=== PATIENT | female | born 1965 | race African-American/Black ===

== ENCOUNTER 2016-12-14 11:35 | Emergency (ER) | payer MEDICARE ==
[2016-12-14] MEDS ORDERED: ASPIRIN 81 MG TABLET, CHEWABLE PO ONE (11:49)
--- NOTE | 2016-12-14 11:52 | ER Document Report ---
ED Medical Screen (RME) - General Stated Complaint: SHORTNESS OF BREATH Notes: Patient states she has been feeling short of breath for about a month. Does have a history of congestive heart failure. Denies peripheral swelling. Patient states she has had a cough the last couple of days. Denies chest pain, but states it feels uneasy. Denies fever. Patient states her heart rate has been staying above 100. I have greeted and performed a rapid initial assessment of this patient. A comprehensive ED assessment and evaluation of the patient, analysis of test results and completion of the medical decision making process will be conducted by additional ED providers. TRAVEL OUTSIDE OF THE [place] IN LAST 30 DAYS: No - Related Data Allergies/Adverse Reactions: No Known Allergies Allergy (Verified 12/14/16 11:50) Past Medical History - Past Medical History Cardiac Medical History: Reports: Hx Congestive Heart Failure, Hx Hypertension, Hx Pulmonary Embolism Pulmonary Medical History: Denies: Hx Tuberculosis Psychiatric Medical History: Reports: Hx Depression Past Surgical History: Reports: Hx Cardiac Surgery - pacer/defib placement, Hx Hysterectomy, Hx Internal Defibrillator, Hx Orthopedic Surgery - total right knee replacement, Hx Pacemaker, Hx Tubal Ligation. Denies: Hx Appendectomy, Hx Bowel Surgery, Hx Section, Hx Cholecystectomy, Hx Coronary Artery Bypass Graft, Hx Gastric Bypass Surgery, Hx Herniorrhaphy, Hx Mastectomy, Hx Tonsillectomy - Immunizations Hx Diphtheria, Pertussis, Tetanus Vaccination: Yes Physical Exam - Vital signs Vitals: Temp Pulse Resp BP Pulse Ox 98.3 F 100 18 149/103 H 97 12/14/16 11:46 12/14/16 11:46 12/14/16 11:46 12/14/16 11:46 12/14/16 11:46 - Respiratory Notes: Lungs clear to auscultation, patient in no respiratory distress. Course - Vital Signs Vital signs: Temp Pulse Resp BP Pulse Ox 98.3 F 100 18 149/103 H 97 12/14/16 11:46 12/14/16 11:46 12/14/16 11:46 12/14/16 11:46 12/14/16 11:46
[2016-12-14 12:30] LABS: APPEARANCE,URINE CLEAR; BILIRUBIN,URINE NEGATIVE (NEGATIVE); GLUCOSE, URINE NEGATIVE (NEGATIVE); KETONES,URINE NEGATIVE (NEGATIVE); LEUKOCYTE ESTERASE,URINE NEGATIVE (NEGATIVE); NITRITE,URINE NEGATIVE (NEGATIVE); PROTEIN,URINE NEGATIVE (NEGATIVE); URINE SPECIFIC GRAVITY 1.016; UROBILINOGEN,URINE NEGATIVE mg/dL (<2.0)
[2016-12-14 12:32] LABS: PROTHROMBIN TIME 14.8 SEC (11.4-15.4)
[2016-12-14 12:36] LABS: ABSOLUTE EOSINOPHILS # (AUTO) 0.1 10^3/uL (0.0-0.6); ABSOLUTE LYMPHOCYTES (AUTO) 2.3 10^3/uL (0.5-4.7); ABSOLUTE MONOCYTES (AUTO) 0.6 10^3/uL (0.1-1.4); ABSOLUTE NEUT (AUTO) 4.1 10^3/uL (1.7-8.2); BASOPHILS % (AUTO) 0.4 % (0-2); EOSINOPHILS % (AUTO) 1.2 % (0-6); HEMATOCRIT 37.5 % (36.0-47.0); HEMOGLOBIN 12.7 g/dL (12.0-15.5); HGB HCT DIFFERENCE 0.6; LYMPHOCYTES % (AUTO) 32.3 % (13-45); MEAN CORPUSCULAR HEMOGLOBIN 28.4 pg (27.0-33.4); MEAN CORPUSCULAR HGB CONC 33.9 g/dL (32.0-36.0); MEAN CORPUSCULAR VOLUME 84 fl (80-97); MONOCYTES % (AUTO) 8.1 % (3-13); RED BLOOD COUNT 4.48 10^6/uL (3.72-5.28); RED CELL DISTRIBUTION WIDTH 14.2 % (11.5-14.0)
[2016-12-14 12:54] LABS: ALANINE AMINOTRANSFERASE 35 U/L (9-52); ALBUMIN 4.2 g/dL (3.5-5.0); ALKALINE PHOSPHATASE 58 U/L (38-126); ANION GAP 15 (5-19); ASPARTATE AMINO TRANSFERASE 26 U/L (14-36); BILIRUBIN,DIRECT 0.3 mg/dL (0.0-0.4); BILIRUBIN,TOTAL 0.7 mg/dL (0.2-1.3); BLOOD UREA NITROGEN 9 mg/dL (7-20); CALCIUM 9.8 mg/dL (8.4-10.2); CARBON DIOXIDE 22 mmol/L (22-30); CHLORIDE 106 mmol/L (98-107); CREATINE KINASE 172 U/L (30-135); CREATININE RESULT 0.77 mg/dL (0.52-1.25); GLUCOSE 101 mg/dL (75-110); POTASSIUM 4.2 mmol/L (3.6-5.0); SODIUM 143.1 mmol/L (137-145)
[2016-12-14 13:04] LABS: CREATINE KINASE MB 1.67 ng/mL (<4.55)
[2016-12-14 13:05] LABS: TROPONIN I < 0.012 ng/mL
--- NOTE | 2016-12-14 13:09 | EKG REPORT ---
SEVERITY:- ABNORMAL ECG - SINUS RHYTHM MAXIMUS, CONSIDER BIATRIAL ABNORMALITIES NONSPECIFIC INTRAVENTRICULAR CONDUCTION DELAY LEFT VENTRICULAR HYPERTROPHY : Confirmed by: Maynor Villareal MD 14-Dec-2016 13:08:55
[2016-12-14] MEDS ORDERED: FUROSEMIDE INJ/PF 40 MG/4 ML SDV IV ONE (15:16)
--- NOTE | 2016-12-14 15:40 | ER Document Report ---
ED Respiratory Problem - General Chief Complaint: Shortness Of Breath Stated Complaint: SHORTNESS OF BREATH Information source: Patient Notes: 51-year-old female with past medical history as recorded including CHF with a defibrillator who presents today with around 1 week of some shortness of breath. She denies to me any chest pain. She denies any calf pain or leg swelling. She denies any fevers or coughing. Patient states she did run out of her Lasix 13-4 days ago. She states she takes around 40 mg twice a day. Patient's primary care physician locally is millicent Winkler. Judicial Clerk is at [facility]. TRAVEL OUTSIDE OF THE [place] IN LAST 30 DAYS: No - HPI Patient complains to provider of: Short of breath Onset: Other - See above Duration: Better Quality of pain: No pain Severity: Mild Pain Level: Denies Context: Other - See above Short of Breath: Mild Sputum amount: None Associated symptoms: Other - See above Similar symptoms previously: Yes Recently seen / treated by doctor: Yes - Related Data Allergies/Adverse Reactions: No Known Allergies Allergy (Verified 12/14/16 11:50) Past Medical History - General Information source: Patient - Social History Smoking Status: Never Smoker Cigarette use (# per day): No Chew tobacco use (# tins/day): No Smoking Education Provided: No Frequency of alcohol use: Rare Drug Abuse: None Family History: Reviewed & Not Pertinent Patient has suicidal ideation: No Patient has homicidal ideation: No - Past Medical History Cardiac Medical History: Reports: Hx Congestive Heart Failure, Hx Hypertension, Hx Pulmonary Embolism Pulmonary Medical History: Denies: Hx Tuberculosis Renal/ Medical History: Denies: Hx Peritoneal Dialysis Psychiatric Medical History: Reports: Hx Depression Past Surgical History: Reports: Hx Cardiac Surgery - pacer/defib placement, Hx Hysterectomy, Hx Internal Defibrillator, Hx Orthopedic Surgery - total right knee replacement, Hx Pacemaker, Hx Tubal Ligation. Denies: Hx Appendectomy, Hx Bowel Surgery, Hx Section, Hx Cholecystectomy, Hx Coronary Artery Bypass Graft, Hx Gastric Bypass Surgery, Hx Herniorrhaphy, Hx Mastectomy, Hx Tonsillectomy - Immunizations Hx Diphtheria, Pertussis, Tetanus Vaccination: Yes Hx Pneumococcal Vaccination: 09/26/10 Review of Systems - Review of Systems Constitutional: denies: Fever EENT: denies: Eye discharge, Nose discharge Cardiovascular: denies: Chest pain, Palpitations Respiratory: denies: Cough, Short of breath Gastrointestinal: denies: Vomiting Genitourinary: denies: Dysuria Musculoskeletal: denies: Leg swelling Skin: Other - no hives. denies: Rash Neurological/Psychological: Other - no slurred speech -: Yes All other systems reviewed and negative Physical Exam - Vital signs Vitals: Temp Pulse Resp BP Pulse Ox 98.3 F 100 18 149/103 H 97 12/14/16 11:46 12/14/16 11:46 12/14/16 11:46 12/14/16 11:46 12/14/16 11:46 Notes: Reviewed vital signs and nursing note as charted by RN. CONSTITUTIONAL: Alert and oriented and responds appropriately to questions. Well -appearing; well-nourished HEAD: Normocephalic; atraumatic CARD: Regular rate and rhythm; no murmurs, no clicks, no rubs, no gallops; symmetric distal pulses RESP: Normal chest excursion without splinting or tachypnea; breath sounds clear and equal bilaterally; no wheezes, no rhonchi, no rales ABD/GI: Normal bowel sounds; non-distended; soft, non-tender, no rebound, no guarding; no palpable organomegaly or masses BACK: The back appears normal and is non-tender to palpation, there is no CVA tenderness EXT: Normal ROM in all joints; non-tender to palpation; no cyanosis, no effusions, no edema SKIN: Normal color for age and race; warm; dry; good turgor; capillary refill < 2 seconds; no acute lesions noted NEURO: Moves all extremities equally; Motor and sensory function intact PSYCH: The patient's mood and manner are appropriate. Grooming and personal hygiene are appropriate. Course - Re-evaluation Re-evalutation: Given history and physical examination we will order an x-ray of the chest, BNP , cardiac enzymes, and EKG. 12/14/16 15:37 Cardiac enzymes as recorded. BMP as recorded. X-ray of the chest shows some mild cardiomegaly without any obvious signs of failure. Patient's room air oxygen saturation is 99%. Heart rate 70. Blood pressure 140/92 currently. EKG shows a heart rate of 98, normal sinus rhythm, left axis deviation, LVH with no obvious ST elevation or depression. Old EKG on 12/11/2015 shows no obvious appreciable change. Given the history, physical, normal troponin, x-ray of the chest as recorded, unchanged EKG, no chest pain, BNP as recorded, noncompliant with medications for the last 4 days, with a history of congestive heart failure, with stable vital signs, I will provide a one-time dose of Lasix 40 mg and refill the patient's Lasix prescription. I have tried to call the patient's primary care physician Dr. Winkler, and did speak with his office staff, but they state that he is only present in the office on Tuesday, Tuesday, and Tuesday. They state that the patient should be able to be seen on Tuesday. I have relayed this to the patient. Patient will be discharged home after the course of Lasix with strict return precautions and follow-up with both a primary care physician and it program manager. She understands these instructions and is in agreement with this plan. - Vital Signs Vital signs: Temp Pulse Resp BP Pulse Ox 98.3 F 100 18 149/103 H 97 12/14/16 11:46 12/14/16 11:46 12/14/16 11:46 12/14/16 11:46 12/14/16 11:46 - Laboratory Result Diagrams: 12/14/16 11:55 12/14/16 11:55 Laboratory results interpreted by me: 12/14/16 12/14/16 11:55 11:55 RDW 14.2 H Creatine Kinase 172 H Discharge - Discharge Clinical Impression: Shortness of breath Condition: Good Disposition: HOME, SELF-CARE Additional Instructions: Come back immediately with any worsening shortness of breath, chest pain, calf pain, leg swelling, fevers, coughing, or any other acute problems. Please make sure that you follow-up with your primary care physician on Tuesday and please contact her it program manager tomorrow. Please start taking again your Lasix medications as we have discussed. Prescriptions: Furosemide [Lasix] 40 mg PO BID #60 tablet
[2016-12-14 16:04] VITALS: BP 147/106
== END 2016-12-14 16:07 | disposition home or self-care (01) ==
LOC: ER 11:35
DX: R06.02 Shortness of breath (principal); I50.9 Heart failure, unspecified; I11.0 Hypertensive heart disease with heart failure; Z96.651 Presence of right artificial knee joint; Z95.810 Presence of automatic (implantable) cardiac defibrillator; Z86.711 Personal history of pulmonary embolism; Z90.710 Acquired absence of both cervix and uterus
CPT/HCPCS: 93005; 99285; 96374; 36415; 82553; 82550; 85025; 85610; 80053; 81001; 84484; 83880; 71010; 93010; A9270; J1940

== ENCOUNTER 2017-02-04 15:35 | Emergency (ER) | payer MEDICARE, MEDICAID ==
--- NOTE | 2017-02-04 16:05 | ER Document Report ---
ED Medical Screen (RME) - General Chief Complaint: Shortness Of Breath Stated Complaint: SHORTNESS OF BREATH Time Seen by Provider: 02/04/17 15:53 Notes: The patient is a 51-year-old female, past medical history CHF (inital EF 10%, now 35%), tachydysrhythmias, history of PEs (not on Xarelto anymore due to insurance reasons), presents with increasing shortness of breath, orthopnea and dyspnea on exertion. She is also having intermittent mild left-sided chest pain. She thinks that she is having worsening symptoms of her CHF. In addition , over the past several weeks she is feeling like food is getting stuck when she swallows. She has an appointment with her primary care physician in 3 days. She denies leg swelling, fevers, nausea, vomiting, back pain, leg swelling, edema or headache. No respiratory distress. Lungs CTAB. Normal heart rate. No peripheral edema. I have greeted and performed a rapid initial assessment of this patient. A comprehensive ED assessment and evaluation of the patient, analysis of test results and completion of the medical decision making process will be conducted by additional ED providers. TRAVEL OUTSIDE OF THE [place] IN LAST 30 DAYS: No - Related Data Allergies/Adverse Reactions: No Known Allergies Allergy (Verified 12/14/16 11:50) Past Medical History - Past Medical History Cardiac Medical History: Reports: Hx Congestive Heart Failure, Hx Hypertension, Hx Pulmonary Embolism Pulmonary Medical History: Denies: Hx Tuberculosis Renal/ Medical History: Denies: Hx Peritoneal Dialysis Psychiatric Medical History: Reports: Hx Depression Past Surgical History: Reports: Hx Cardiac Surgery - pacer/defib placement, Hx Hysterectomy, Hx Internal Defibrillator, Hx Orthopedic Surgery - total right knee replacement, Hx Pacemaker, Hx Tubal Ligation. Denies: Hx Appendectomy, Hx Bowel Surgery, Hx Section, Hx Cholecystectomy, Hx Coronary Artery Bypass Graft, Hx Gastric Bypass Surgery, Hx Herniorrhaphy, Hx Mastectomy, Hx Tonsillectomy - Immunizations Hx Diphtheria, Pertussis, Tetanus Vaccination: Yes Physical Exam - Vital signs Vitals: Pulse Resp BP Pulse Ox 81 18 127/109 H 98 02/04/17 15:45 02/04/17 15:45 02/04/17 15:45 02/04/17 15:45 Course - Vital Signs Vital signs: Temp Pulse Resp BP Pulse Ox 97.9 F 81 18 127/109 H 98 02/04/17 15:49 02/04/17 15:45 02/04/17 15:45 02/04/17 15:45 02/04/17 15:45
[2017-02-04 17:00] LABS: ABSOLUTE BASOPHILS # (AUTO) 0.1 10^3/uL (0.0-0.2); ABSOLUTE EOSINOPHILS # (AUTO) 0.1 10^3/uL (0.0-0.6); ABSOLUTE LYMPHOCYTES (AUTO) 2.5 10^3/uL (0.5-4.7); ABSOLUTE MONOCYTES (AUTO) 0.4 10^3/uL (0.1-1.4); ABSOLUTE NEUT (AUTO) 3.2 10^3/uL (1.7-8.2); BASOPHILS % (AUTO) 0.9 % (0-2); EOSINOPHILS % (AUTO) 2.4 % (0-6); HEMATOCRIT 36.3 % (36.0-47.0); HEMOGLOBIN 12.1 g/dL (12.0-15.5); LYMPHOCYTES % (AUTO) 39.2 % (13-45); MEAN CORPUSCULAR HGB CONC 33.3 g/dL (32.0-36.0); MEAN CORPUSCULAR VOLUME 84 fl (80-97); RED BLOOD COUNT 4.31 10^6/uL (3.72-5.28); RED CELL DISTRIBUTION WIDTH 15.4 % (11.5-14.0); SEGMENTED NEUTROPHILS % (AUTO) 50.5 % (42-78); WHITE BLOOD COUNT 6.3 10^3/uL (4.0-10.5)
[2017-02-04 17:19] LABS: ANION GAP 11 (5-19); BLOOD UREA NITROGEN 16 mg/dL (7-20); CALCIUM 9.7 mg/dL (8.4-10.2); CARBON DIOXIDE 24 mmol/L (22-30); CHLORIDE 107 mmol/L (98-107); CREATINE KINASE 209 U/L (30-135); CREATININE RESULT 1.02 mg/dL (0.52-1.25); GLUCOSE 98 mg/dL (75-110); POTASSIUM 4.4 mmol/L (3.6-5.0); SODIUM 142.2 mmol/L (137-145)
[2017-02-04] MEDS ORDERED: METOCLOPRAMIDE HCL ORAL SOLN 10 MG/10 ML UDCUP PO ONE (17:43)
[2017-02-04] MEDS ORDERED: LIDOCAINE 2% VISCOUS SOLN 20 ML UDCUP PO ONE (17:43)
[2017-02-04] MEDS ORDERED: MAG HYDROX/AL HYDROX/SIMETH SUSP 30 ML UDCUP PO ONE (17:43)
[2017-02-04] MEDS ORDERED: FAMOTIDINE INJ/PF 20 MG/2 ML SDV IV ONE (18:22)
--- NOTE | 2017-02-04 22:07 | ER Document Report ---
ED General - General Chief Complaint: Shortness Of Breath Stated Complaint: SHORTNESS OF BREATH Time Seen by Provider: 02/04/17 15:53 Mode of Arrival: Ambulatory Information source: Patient Notes: This is a 51-year-old female with a history of a cardiomyopathy (last ejection fraction 30% status post defibrillator placement), who presents to the emergency room with shortness of breath and a choking sensation when she is eating food. Patient states she's had these symptoms for the past couple of months. She did have an appointment at [facility] on January 30 and missed the appointment , but does have an appointment this Tuesday (in 3 days). Patient denies any chest pain. Patient denies any weight gain. Patient states it seems to be affected mostly by swallowing food. She is tight able to tolerate fluids and her medicines. Medications: Lisinopril 20 Aspirin 81 Carvedilol 25 Lasix 88 Spironolactone 25 TRAVEL OUTSIDE OF THE [place] IN LAST 30 DAYS: No - HPI Onset: Other - Last month Onset/Duration: Gradual Quality of pain: No pain Severity: None Pain Level: Denies Associated symptoms: Shortness of breath. denies: Chest pain, Chills, Fever Exacerbated by: Denies Relieved by: Denies Similar symptoms previously: No Recently seen / treated by doctor: No - Related Data Allergies/Adverse Reactions: No Known Allergies Allergy (Verified 12/14/16 11:50) Past Medical History - General Information source: Patient - Social History Smoking Status: Never Smoker Cigarette use (# per day): No Chew tobacco use (# tins/day): No Frequency of alcohol use: None Drug Abuse: None Lives with: Family Family History: Reviewed & Not Pertinent Patient has suicidal ideation: No Patient has homicidal ideation: No - Past Medical History Cardiac Medical History: Reports: Hx Congestive Heart Failure, Hx Hypertension, Hx Pulmonary Embolism Pulmonary Medical History: Denies: Hx Tuberculosis Renal/ Medical History: Denies: Hx Peritoneal Dialysis Psychiatric Medical History: Reports: Hx Depression Past Surgical History: Reports: Hx Cardiac Surgery - pacer/defib placement, Hx Hysterectomy, Hx Internal Defibrillator, Hx Orthopedic Surgery - total right knee replacement, Hx Pacemaker, Hx Tubal Ligation. Denies: Hx Appendectomy, Hx Bowel Surgery, Hx Section, Hx Cholecystectomy, Hx Coronary Artery Bypass Graft, Hx Gastric Bypass Surgery, Hx Herniorrhaphy, Hx Mastectomy, Hx Tonsillectomy - Immunizations Hx Diphtheria, Pertussis, Tetanus Vaccination: Yes Hx Pneumococcal Vaccination: 09/26/10 Review of Systems - Review of Systems Constitutional: denies: Chills, Fever EENT: No symptoms reported Cardiovascular: See HPI Respiratory: See HPI Gastrointestinal: No symptoms reported Genitourinary: No symptoms reported Female Genitourinary: No symptoms reported Musculoskeletal: No symptoms reported Skin: No symptoms reported Hematologic/Lymphatic: No symptoms reported Neurological/Psychological: No symptoms reported Physical Exam - Vital signs Vitals: Pulse Resp BP Pulse Ox 81 18 127/109 H 98 02/04/17 15:45 02/04/17 15:45 02/04/17 15:45 02/04/17 15:45 Notes: Physical exam: GENERAL: 81-year-old female, alert and oriented 3, no acute distress. HEAD: Atraumatic, normocephalic. EYES: Pupils equal round and reactive to light, extraocular movements intact, sclera anicteric, conjunctiva are normal. ENT: TMs normal, nares patent, oropharynx clear without exudates. Moist mucous membranes. NECK: Normal range of motion, supple without lymphadenopathy or JVD. LUNGS: Breath sounds clear to auscultation bilaterally and equal. No wheezes rales or rhonchi. Chest wall: Defibrillator and left side of chest. No skin changes or swelling over the site. HEART: Regular rate and rhythm without murmurs, rubs or gallops. ABDOMEN: Soft, normoactive bowel sounds. No tenderness to palpation. No guarding, no rebound. No masses appreciated. EXTREMITIES: Normal range of motion, no pitting or edema. No clubbing or cyanosis. NEUROLOGICAL: Cranial nerves II through XII grossly intact. Normal speech, normal gait. PSYCH: Normal mood, normal affect. SKIN: Warm, Dry, normal turgor, no rashes or lesions noted. Course - Re-evaluation Re-evalutation: 02/04/17 23:12 Note: Patient doesn't have any evidence of acute ischemia on blood work or EKG. She doesn't have any evidence of fluid overload on physical exam or chest x- ray. She is having a lot of esophageal issues which may be because of her dilated cardiomyopathy pressing against the esophagus. She is able to tolerate fluids, food and her pills. Her symptoms are not constant. If she does have an esophageal web, she will need to be seen by GI. However, she should be seen by cardiology first and maybe have an echo to assess most recent ejection fraction. I have discussed this with her. In any event, she does have an appointment with [facility] on Tuesday. I have told her is they think that her symptoms are more esophageal and not cardiac, that follow-up with GI at [facility] may be the appropriate setting given her significant heart disease. The patient is very pleasant and looks comparable on discharge. - Vital Signs Vital signs: Temp Pulse Resp BP Pulse Ox 97.9 F 75 18 122/88 H 98 02/04/17 15:49 02/04/17 22:29 02/04/17 22:29 02/04/17 22:29 02/04/17 22:29 - Laboratory Result Diagrams: 02/04/17 16:45 02/04/17 16:45 Laboratory results interpreted by me: 02/04/17 02/04/17 16:45 16:45 RDW 15.4 H Est GFR (Non-Af Amer) 57 L Creatine Kinase 209 H - Diagnostic Test Radiology reviewed: Image reviewed, Reports reviewed - Chest x-ray shows no infiltrates or effusions. - EKG Interpretation by Me Rate: Normal Rhythm: NSR - EKG shows sinus rhythm with a ventricular rate of 86, evidence of LVH, left anterior hemiblock, PVC. There is no significant EKG changes compared to old EKG. Discharge - Discharge Clinical Impression: shortness of breath Condition: Stable Disposition: HOME, SELF-CARE Additional Instructions: Recommendations: Try the Pepcid daily seat to see if it has any effect. Continue current medicines. Follow-up with Dr. Ventura as planned at [facility] on Tuesday. Bring a copy of today's labs, EKG and chest x-ray with you. If the symptoms aren't related to the heart, you might need a GI evaluation and this is probably past done at [facility] given the heart condition. As always, return to the emergency room for any worsening shortness of breath, difficulty breathing or if you think your symptoms are getting worse. Prescriptions: Famotidine [Pepcid 20 mg Tablet] 20 mg PO DAILY #12 tablet Referrals: TOMEKA MORGAN MD [Primary Care Provider] - Follow up as needed
[2017-02-04 22:30] VITALS: BP 122/88
--- NOTE | 2017-02-05 13:03 | EKG REPORT ---
SEVERITY:- ABNORMAL ECG - SINUS RHYTHM VENTRICULAR PREMATURE COMPLEX FIRST DEGREE AV BLOCK LEFT ATRIAL ABNORMALITY NONSPECIFIC INTRAVENTRICULAR CONDUCTION DELAY LEFT VENTRICULAR HYPERTROPHY : Confirmed by: Gerardo Castro 05-Feb-2017 13:02:24
== END 2017-02-04 22:30 | disposition home or self-care (01) ==
LOC: ER 15:35
DX: I42.0 Dilated cardiomyopathy (principal); R06.02 Shortness of breath; R19.8 Other specified symptoms and signs involving the digestive system and abdomen; I10 Essential (primary) hypertension; Z95.810 Presence of automatic (implantable) cardiac defibrillator; Z79.899 Other long term (current) drug therapy; Z79.82 Long term (current) use of aspirin; Z86.711 Personal history of pulmonary embolism
CPT/HCPCS: 93005; 99285; 96374; 36415; 82550; 85025; 80048; 84484; 71020; 93010; J3490; A9270; S0028

== ENCOUNTER → 2017-03-16 | Outpatient (CLI) | payer MEDICARE ==
--- NOTE | 2017-03-16 16:24 | WOMENS IMAGING REPORT ---
EXAM DESCRIPTION: BILAT DIAGNOSTIC MAMMO W/CAD; U/S BREAST UNILAT LIMITED COMPLETED DATE/TIME: 03/16/2017 9:11 am; 03/16/2017 9:43 am REASON FOR STUDY: N63, BREAST LUMP; RT BREAST N63 N63 UNSPECIFIED LUMP IN BREAST COMPARISON: Multiple since 2008 TECHNIQUE: Standard craniocaudal and mediolateral oblique views of each breast recorded using digita l acquisition. Additional right breast 90 mediolateral view and exaggerated craniocaudad view. Additional right br east ultrasound. LIMITATIONS: None. FINDINGS: RIGHT BREAST MASSES: No suspicious masses. 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 In the area of palpable abnormality 3 to 4 o'clock position, no mammographic nodules are identified. CALCIFICATIONS: No new or suspicious calcifications. ARCHITECTURAL DISTORTION: None. DEVELOPING DENSITY: None. ASYMMETRY: None noted. OTHER: No other significant findings. LEFT BREAST MASSES: No suspicious masses. CALCIFICATIONS: No new or suspicious calcifications. ARCHITECTURAL DISTORTION: None. DEVELOPING DENSITY: None. ASYMMETRY: None noted. OTHER: No other significant finding. Read with the assistance of CAD: .[facility] - R2 Cenova Version 1.3 .[facility] - R2 Cenova Version 1.3 .[facility] - R2 Cenova Version 2.4 .[facility] - R2 Cenova Version 2.4 .[facility] - R2 [employer] Version 9.2 Right breast ultrasound: Patient indicates a palpable abnormality in the right breast at about the 3 to 4 o'clock position. I n this area, no discrete cystic or solid lesions. No focal acoustic absorption. No focal findings. IMPRESSION: No mammographic or sonographic evidence for malignancy right breast. No mammographic evidence for malignancy left breast. BREAST DENSITY: b. There are scattered areas of fibroglandular density. BIRAD: 2 Benign findings. RECOMMENDATION: RECOMMENDED FOLLOW UP: Clinical followup for right breast palpable abnormality. Oth erwise, chest please continue yearly bilateral screening mammograms in February 2018. SPECIFIC INTERVENTION/IMAGING/CONSULTATION RECOMMENDED:No additional intervention/ imaging/consultati on needed at this time. COMMUNICATION:The negative/benign results were communicated to the patient. COMMENT: The patient has been notified of the results by letter per MQSA requirements. Additional no tification policies are in place for contacting patient with suspicious or incomplete findings. Quality ID #[id number]: The [employer] recommends an annual screening mammogram for women aged 40 years or over. This facility utilizes a reminder system to ensure that all patients receive reminder letters, and/or direct phone calls for appointments. This includes reminders for routine scr eening mammograms, diagnostic mammograms, or other Breast Imaging Interventions when appropriate. Th is patient will be placed in the appropriate reminder system. The [employer] (A[employer]) has developed recommendations for screening MRI of the breast s in certain patient populations, to be used in conjunction with mammography. Breast MRI surveillanc e may be appropriate for women with more than 20% lifetime risk of developing breast cancer as deter mined by genetic testing, significant family history of the disease, or history of mantle radiation f or Hodgkins Disease. ACR Practice Guidelines 2008. TECHNICAL DOCUMENTATION: FINDING NUMBER: (1) ASSESSMENT: (1) JOB ID: [id number] [employer]- All Rights Reserved
--- NOTE | 2017-03-16 16:24 | WOMENS IMAGING REPORT ---
EXAM DESCRIPTION: BILAT DIAGNOSTIC MAMMO W/CAD; U/S BREAST UNILAT LIMITED COMPLETED DATE/TIME: 03/16/2017 9:11 am; 03/16/2017 9:43 am REASON FOR STUDY: N63, BREAST LUMP; RT BREAST N63 N63 UNSPECIFIED LUMP IN BREAST COMPARISON: Multiple since 2008 TECHNIQUE: Standard craniocaudal and mediolateral oblique views of each breast recorded using digita l acquisition. Additional right breast 90 mediolateral view and exaggerated craniocaudad view. Additional right br east ultrasound. LIMITATIONS: None. FINDINGS: RIGHT BREAST MASSES: No suspicious masses. 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 In the area of palpable abnormality 3 to 4 o'clock position, no mammographic nodules are identified. CALCIFICATIONS: No new or suspicious calcifications. ARCHITECTURAL DISTORTION: None. DEVELOPING DENSITY: None. ASYMMETRY: None noted. OTHER: No other significant findings. LEFT BREAST MASSES: No suspicious masses. CALCIFICATIONS: No new or suspicious calcifications. ARCHITECTURAL DISTORTION: None. DEVELOPING DENSITY: None. ASYMMETRY: None noted. OTHER: No other significant finding. Read with the assistance of CAD: .[facility] - R2 Cenova Version 1.3 .[facility] - R2 Cenova Version 1.3 .[facility] - R2 Cenova Version 2.4 .[facility] [place] - R2 Cenova Version 2.4 .[facility] - R2 Hatchery Attendant Version 9.2 Right breast ultrasound: Patient indicates a palpable abnormality in the right breast at about the 3 to 4 o'clock position. I n this area, no discrete cystic or solid lesions. No focal acoustic absorption. No focal findings. IMPRESSION: No mammographic or sonographic evidence for malignancy right breast. No mammographic evidence for malignancy left breast. BREAST DENSITY: b. There are scattered areas of fibroglandular density. BIRAD: 2 Benign findings. RECOMMENDATION: RECOMMENDED FOLLOW UP: Clinical followup for right breast palpable abnormality. Oth erwise, chest please continue yearly bilateral screening mammograms in February 2018. SPECIFIC INTERVENTION/IMAGING/CONSULTATION RECOMMENDED:No additional intervention/ imaging/consultati on needed at this time. COMMUNICATION:The negative/benign results were communicated to the patient. COMMENT: The patient has been notified of the results by letter per MQSA requirements. Additional no tification policies are in place for contacting patient with suspicious or incomplete findings. Quality ID #225: The [employer] recommends an annual screening mammogram for women aged 40 years or over. This facility utilizes a reminder system to ensure that all patients receive reminder letters, and/or direct phone calls for appointments. This includes reminders for routine scr eening mammograms, diagnostic mammograms, or other Breast Imaging Interventions when appropriate. Th is patient will be placed in the appropriate reminder system. The [employer] (ACR) has developed recommendations for screening MRI of the breast s in certain patient populations, to be used in conjunction with mammography. Breast MRI surveillanc e may be appropriate for women with more than 20% lifetime risk of developing breast cancer as deter mined by genetic testing, significant family history of the disease, or history of mantle radiation f or Hodgkins Disease. ACR Practice Guidelines 2008. TECHNICAL DOCUMENTATION: FINDING NUMBER: (1) ASSESSMENT: (1) JOB ID: [id number] [employer]- All Rights Reserved
== END ==
LOC: WI 11:08 → EDBD 11:08
PROVIDERS: ATTEND Internal Medicine
DX: N63 Unspecified lump in breast (principal)
CPT/HCPCS: 76642; G0204; 77066

== ENCOUNTER 2017-04-10 07:20 | Emergency (ER) | payer MEDICARE, MEDICAID ==
--- NOTE | 2017-04-10 07:33 | ER Document Report ---
ED Respiratory Problem - General Chief Complaint: Shortness Of Breath Stated Complaint: DIFFICULTY BREATHING Time Seen by Provider: 04/10/17 07:30 Notes: The patient is a 50-year-old female, past medical history CHF (last EF 35%), HTN , presents with a few days of cough, wheezing and mild shortness of breath. She feels like this is similar to her prior episodes of bronchitis. She did not take her Lasix yesterday, but denies leg swelling, chest pain, fevers, sputum, back pain, headache, recent travel, nausea, vomiting or palpitations. TRAVEL OUTSIDE OF THE [place] IN LAST 30 DAYS: No - Related Data Allergies/Adverse Reactions: No Known Allergies Allergy (Verified 04/10/17 08:39) Past Medical History - General Information source: Patient - Social History Smoking Status: Former Smoker Family History: Reviewed & Not Pertinent - Past Medical History Cardiac Medical History: Reports: Hx Congestive Heart Failure, Hx Hypertension, Hx Pulmonary Embolism Pulmonary Medical History: Denies: Hx Tuberculosis Renal/ Medical History: Denies: Hx Peritoneal Dialysis Psychiatric Medical History: Reports: Hx Depression Past Surgical History: Reports: Hx Cardiac Surgery - pacer/defib placement, Hx Hysterectomy, Hx Internal Defibrillator, Hx Orthopedic Surgery - total right knee replacement, Hx Pacemaker, Hx Tubal Ligation. Denies: Hx Appendectomy, Hx Bowel Surgery, Hx Section, Hx Cholecystectomy, Hx Coronary Artery Bypass Graft, Hx Gastric Bypass Surgery, Hx Herniorrhaphy, Hx Mastectomy, Hx Tonsillectomy - Immunizations Hx Diphtheria, Pertussis, Tetanus Vaccination: Yes Hx Pneumococcal Vaccination: 09/26/10 Review of Systems - Review of Systems Notes: REVIEW OF SYSTEMS: CONSTITUTIONAL: -fevers, -chills EENT: -eye pain, -difficulty swallowing, -nasal congestion CARDIOVASCULAR:-chest pain, -syncope. RESPIRATORY: +cough, +SOB GASTROINTESTINAL: -abdominal pain, - nausea, -vomiting, -diarrhea GENITOURINARY: -dysuria, -hematuria MUSCULOSKELETAL: -back pain, -neck pain SKIN: -rash or skin lesions. HEMATOLOGIC: -easy bruising or bleeding. LYMPHATIC: -swollen, enlarged glands. NEUROLOGICAL: -altered mental status or loss of consciousness, -headache, - neurologic symptoms PSYCHIATRIC: -anxiety, -depression. ALL OTHER SYSTEMS REVIEWED AND NEGATIVE. Physical Exam - Vital signs Vitals: Temp Pulse Resp BP Pulse Ox 97.9 F 89 20 149/105 H 97 04/10/17 07:27 04/10/17 07:27 04/10/17 07:27 04/10/17 07:27 04/10/17 07:27 - Notes Notes: PHYSICAL EXAMINATION: GENERAL: Well-appearing, well-nourished and in no acute distress. HEAD: Atraumatic, normocephalic. EYES: Pupils equal round and reactive to light, extraocular movements intact, sclera anicteric, conjunctiva are normal. ENT: nares patent, oropharynx clear without exudates. Moist mucous membranes. NECK: Normal range of motion, supple without lymphadenopathy LUNGS: Mild end-expiratory wheeze. Rales. No respiratory distress. HEART: Regular rate and rhythm without murmurs ABDOMEN: Soft, nontender, normoactive bowel sounds. No guarding, no rebound. No masses appreciated. EXTREMITIES: Normal range of motion, no pitting or edema. No cyanosis. NEUROLOGICAL: Cranial nerves grossly intact. Normal speech, normal gait. Normal sensory and motor exams. PSYCH: Normal mood, normal affect. SKIN: Warm, Dry, normal turgor, no rashes or lesions noted. Course - Re-evaluation Re-evalutation: Patient appears well. Her x-ray shows mild pulmonary vascular congestion. She is in no respiratory distress and after DuoNeb and IV Lasix, her lung sounds are clear. Patient is requesting discharge. We will send home with albuterol and instructions to continue her Lasix with follow-up at her primary care physician and university counselor. Given strict return precautions and she understands. - Vital Signs Vital signs: Temp Pulse Resp BP Pulse Ox 97.9 F 89 20 149/105 H 97 04/10/17 07:27 04/10/17 07:27 04/10/17 07:27 04/10/17 07:27 04/10/17 07:27 - Laboratory Result Diagrams: 04/10/17 07:56 04/10/17 07:56 Laboratory results interpreted by me: 04/10/17 07:56 RDW 15.2 H - Diagnostic Test Radiology reviewed: Image reviewed, Reports reviewed Radiology results interpreted by me: CXR: mild pulmonary vascular congestion - EKG Interpretation by Me EKG shows normal: Sinus rhythm, [place], Intervals, QRS Complexes, ST-T Waves Rate: Normal Voltage: Consistant with LVH P Waves: LAE When compared to previous EKG there are: No significant change Discharge - Discharge Clinical Impression: Pulmonary vascular congestion Condition: Stable Disposition: HOME, SELF-CARE Additional Instructions: SHORTNESS OF BREATH OR DYSPNEA: You were evaluated for shortness of breath, or dyspnea. Dyspnea has many causes, and some are more serious than others. Sometimes it's impossible to diagnose the cause of dyspnea with the tests that are available on an emergency basis. Based on our evaluation today, you do not need hospitalization now. We found no evidence of pneumonia, collapsed lung, blood clots in the lung, tumors , or heart failure. Causes of non-specific dyspnea can include asthma or bronchospasm, hyperventilation, emotional distress, heart disease, emphysema, fibrosis of the lung, and stiffness of the chest wall. In healthy individuals with a single episode, it's sometimes reasonable to do nothing but wait to see if the problem occurs again. Additional tests used to evaluate dyspnea can include cardiac stress testing, echocardiography, pulmonary function testing, CAT scan of the chest, bronchoscopy or pulmonary biopsy. Return if shortness of breath persists or worsens, or if you develop chest pain, fever, cough, confusion, or fainting. NORMAL EXAM AND WORKUP: At this time, your examination and workup show no significant abnormality. No significant abnormal physical findings were noted. All laboratory, EKG, and imaging (x-ray, CT scans, ultrasound) studies that were ordered show no significant abnormality. Although your examination and all studies that were ordered showed no significant abnormal finding, there are no examinations and no studies that are 100% accurate. There is always the possibility that some abnormality could exist and not be detected with physical examination or within the limits and capabilities of laboratory and other studies. You should return or follow up as you were instructed on your visit today for further evaluation if your symptoms do not resolve. FOLLOW-UP CARE: If you have been referred to a physician for follow-up care, call the physician s office for an appointment as you were instructed or within the next two days. If you experience worsening or a significant change in your symptoms, notify the physician immediately or return to the Emergency Department at any time for re-evaluation. Congestive Heart Failure You have been diagnosed as having congestive heart failure (CHF). CHF occurs when the heart is unable to pump blood efficiently, leading to fluid buildup in the veins and lungs. Typical symptoms are swelling of the legs, shortness of breath on minor exertion, and fatigue. CHF is treated with salt restriction, medicine to eliminate excess water and salt from the body, and medication to help the heart contract more efficiently. Eliminate added salt and salty foods in your diet. Decrease your activity until excess fluid has been eliminated. It will also be helpful to raise the head of your bed so you can sleep more easily. Keep a daily record of your weight. This will help your physician monitor your progress. Once extra water has been eliminated, light aerobic exercise daily -- such as walking -- will be helpful (unless your physician has told you to restrict activity for other reasons). Be sure to follow up with the physician as instructed. Contact the doctor at once if you worsen in any way. Prescriptions: Albuterol Sulfate [Proair HFA Inhalation Aerosol 8.5 gm MDI] 2 puff IH Q4H PRN # 1 mdi PRN Reason:
[2017-04-10] MEDS ORDERED: IPRATROPIUM/ALBUTEROL 0.5-2.5 MG/3 ML AMPUL NEB ONE (07:37)
[2017-04-10 08:08] LABS: ABSOLUTE EOSINOPHILS # (AUTO) 0.1 10^3/uL (0.0-0.6); ABSOLUTE LYMPHOCYTES (AUTO) 2.2 10^3/uL (0.5-4.7); ABSOLUTE MONOCYTES (AUTO) 0.4 10^3/uL (0.1-1.4); ABSOLUTE NEUT (AUTO) 3.4 10^3/uL (1.7-8.2); BASOPHILS % (AUTO) 0.7 % (0-2); EOSINOPHILS % (AUTO) 2.2 % (0-6); HEMATOCRIT 37.1 % (36.0-47.0); HGB HCT DIFFERENCE -1.1; LYMPHOCYTES % (AUTO) 35.6 % (13-45); MEAN CORPUSCULAR HEMOGLOBIN 27.7 pg (27.0-33.4); MEAN CORPUSCULAR HGB CONC 32.4 g/dL (32.0-36.0); MEAN CORPUSCULAR VOLUME 85 fl (80-97); MONOCYTES % (AUTO) 7.2 % (3-13); RED BLOOD COUNT 4.34 10^6/uL (3.72-5.28); RED CELL DISTRIBUTION WIDTH 15.2 % (11.5-14.0); SEGMENTED NEUTROPHILS % (AUTO) 54.3 % (42-78); WHITE BLOOD COUNT 6.2 10^3/uL (4.0-10.5)
[2017-04-10 08:26] LABS: ANION GAP 11 (5-19); BLOOD UREA NITROGEN 10 mg/dL (7-20); CALCIUM 9.3 mg/dL (8.4-10.2); CARBON DIOXIDE 22 mmol/L (22-30); CHLORIDE 107 mmol/L (98-107); CREATINE KINASE 129 U/L (30-135); CREATININE RESULT 0.83 mg/dL (0.52-1.25); GLUCOSE 105 mg/dL (75-110); LIPASE 76.5 U/L (23-300)
[2017-04-10 08:39] LABS: TROPONIN I < 0.012 ng/mL
--- NOTE | 2017-04-10 08:55 | RADIOLOGY REPORT (SQ) ---
EXAM DESCRIPTION: CHEST PA/LAT COMPLETED DATE/TIME: 04/10/2017 8:46 am REASON FOR STUDY: SOB COMPARISON: 02/04/2017. NUMBER OF VIEWS: Two views. TECHNIQUE: Frontal and lateral radiographic views of the chest acquired. LIMITATIONS: None. FINDINGS: LUNGS AND PLEURA: No opacities, masses or pneumothorax. No pleural effusion. MEDIASTINUM AND HILAR STRUCTURES: No masses or contour abnormality. HEART AND VASCULAR STRUCTURES: Cardiac enlargement. Mild vascular congestion. BONES: No acute findings. HARDWARE: Defibrillator. OTHER: No other significant finding. IMPRESSION: CARDIAC ENLARGEMENT. MILD VASCULAR CONGESTION. TECHNICAL DOCUMENTATION: JOB ID: [id number] [employer]- All Rights Reserved
[2017-04-10] MEDS ORDERED: FUROSEMIDE INJ/PF 40 MG/4 ML SDV IV ONE (09:06)
[2017-04-10 09:22] VITALS: BP 151/101
--- NOTE | 2017-04-10 09:49 | EKG REPORT ---
SEVERITY:- ABNORMAL ECG - SINUS RHYTHM VENTRICULAR PREMATURE COMPLEX FIRST DEGREE AV BLOCK LEFT ATRIAL ABNORMALITY LEFT VENTRICULAR HYPERTROPHY BORDERLINE PROLONGED QT INTERVAL : Confirmed by: Maynor Villareal MD 10-Apr-2017 09:49:05
== END 2017-04-10 09:40 | disposition home or self-care (01) ==
LOC: ER 07:20
DX: R09.89 Other specified symptoms and signs involving the circulatory and respiratory systems (principal); R06.02 Shortness of breath; I50.9 Heart failure, unspecified; I10 Essential (primary) hypertension; Z87.891 Personal history of nicotine dependence
CPT/HCPCS: 93005; 94640; 99285; 96374; 36415; 82550; 83690; 85025; 80048; 84484; 83605; 83880; 71020; 93010; J1940; A9270; J7620

== ENCOUNTER 2017-04-20 18:13 | Emergency (ER) | payer MEDICARE ==
--- NOTE | 2017-04-20 18:43 | ER Document Report ---
ED Medical Screen (RME) - General Chief Complaint: Weakness Stated Complaint: ALTERED/WEAKNESS Time Seen by Provider: 04/20/17 18:41 Notes: Patient states she has been feeling very tired over the last several days. She states today she was very tired. She states that she took her blood pressure and it was only 79 systolic. She states that there is been no recent change of her blood pressure medications. She states she has had some mild shortness of breath and chest pain but she often has those symptoms. She denies any fevers. No cough cold or congestion. No urinary complaints. TRAVEL OUTSIDE OF THE [place] IN LAST 30 DAYS: No - Related Data Allergies/Adverse Reactions: No Known Allergies Allergy (Verified 04/20/17 18:35) Past Medical History - Past Medical History Cardiac Medical History: Reports: Hx Congestive Heart Failure, Hx Hypertension, Hx Pulmonary Embolism Pulmonary Medical History: Denies: Hx Tuberculosis Renal/ Medical History: Denies: Hx Peritoneal Dialysis Psychiatric Medical History: Reports: Hx Depression Past Surgical History: Reports: Hx Cardiac Surgery - pacer/defib placement, Hx Hysterectomy, Hx Internal Defibrillator, Hx Orthopedic Surgery - total right knee replacement, Hx Pacemaker, Hx Tubal Ligation. Denies: Hx Appendectomy, Hx Bowel Surgery, Hx Section, Hx Cholecystectomy, Hx Coronary Artery Bypass Graft, Hx Gastric Bypass Surgery, Hx Herniorrhaphy, Hx Mastectomy, Hx Tonsillectomy - Immunizations Hx Diphtheria, Pertussis, Tetanus Vaccination: Yes Physical Exam - Vital signs Vitals: Temp Pulse Resp BP Pulse Ox 97.5 F 60 18 119/91 H 97 04/20/17 18:24 04/20/17 18:24 04/20/17 18:24 04/20/17 18:24 04/20/17 18:24 Course - Vital Signs Vital signs: Temp Pulse Resp BP Pulse Ox 97.5 F 60 18 119/91 H 97 04/20/17 18:24 04/20/17 18:24 04/20/17 18:24 04/20/17 18:24 04/20/17 18:24
[2017-04-20 19:14] LABS: ABSOLUTE EOSINOPHILS # (AUTO) 0.1 10^3/uL (0.0-0.6); ABSOLUTE LYMPHOCYTES (AUTO) 2.5 10^3/uL (0.5-4.7); ABSOLUTE MONOCYTES (AUTO) 0.5 10^3/uL (0.1-1.4); ABSOLUTE NEUT (AUTO) 3.2 10^3/uL (1.7-8.2); BASOPHILS % (AUTO) 0.6 % (0-2); EOSINOPHILS % (AUTO) 1.6 % (0-6); HEMATOCRIT 37.9 % (36.0-47.0); HEMOGLOBIN 12.7 g/dL (12.0-15.5); HGB HCT DIFFERENCE 0.2; LYMPHOCYTES % (AUTO) 39.9 % (13-45); MEAN CORPUSCULAR HEMOGLOBIN 28.7 pg (27.0-33.4); MEAN CORPUSCULAR HGB CONC 33.5 g/dL (32.0-36.0); MEAN CORPUSCULAR VOLUME 85 fl (80-97); MONOCYTES % (AUTO) 7.3 % (3-13); RED BLOOD COUNT 4.44 10^6/uL (3.72-5.28); RED CELL DISTRIBUTION WIDTH 15.3 % (11.5-14.0); SEGMENTED NEUTROPHILS % (AUTO) 50.6 % (42-78); WHITE BLOOD COUNT 6.4 10^3/uL (4.0-10.5)
[2017-04-20 19:19] LABS: APPEARANCE,URINE CLEAR; BILIRUBIN,URINE NEGATIVE (NEGATIVE); GLUCOSE, URINE NEGATIVE (NEGATIVE); KETONES,URINE NEGATIVE (NEGATIVE); LEUKOCYTE ESTERASE,URINE NEGATIVE (NEGATIVE); NITRITE,URINE NEGATIVE (NEGATIVE); PROTEIN,URINE NEGATIVE (NEGATIVE); URINE SPECIFIC GRAVITY 1.023
[2017-04-20 19:37] LABS: ALANINE AMINOTRANSFERASE 23 U/L (9-52); ALBUMIN 4.2 g/dL (3.5-5.0); ALKALINE PHOSPHATASE 48 U/L (38-126); ANION GAP 12 (5-19); ASPARTATE AMINO TRANSFERASE 16 U/L (14-36); BILIRUBIN,DIRECT 0.3 mg/dL (0.0-0.4); BILIRUBIN,TOTAL 0.5 mg/dL (0.2-1.3); BLOOD UREA NITROGEN 17 mg/dL (7-20); CALCIUM 9.3 mg/dL (8.4-10.2); CARBON DIOXIDE 21 mmol/L (22-30); CHLORIDE 106 mmol/L (98-107); CREATININE RESULT 0.96 mg/dL (0.52-1.25); GLUCOSE 95 mg/dL (75-110); SODIUM 139.1 mmol/L (137-145); TOTAL PROTEIN 7.1 g/dL (6.3-8.2)
--- NOTE | 2017-04-20 20:38 | RADIOLOGY REPORT (SQ) ---
EXAM DESCRIPTION: CHEST PA/LAT COMPLETED DATE/TIME: 04/20/2017 8:31 pm REASON FOR STUDY: weakness COMPARISON: 04/10/2017 EXAM PARAMETERS: NUMBER OF VIEWS: two views TECHNIQUE: Digital Frontal and Lateral radiographic views of the chest acquired. RADIATION DOSE: NA LIMITATIONS: none FINDINGS: LUNGS AND PLEURA: No opacities, masses or pneumothorax. No pleural effusion. MEDIASTINUM AND HILAR STRUCTURES: No masses or contour abnormalities. HEART AND VASCULAR STRUCTURES: Cardiac silhouette is enlarged and unchanged in configuration. There is mild pulmonary vascular congestion. BONES: No acute findings. HARDWARE: AICD device is unchanged in position. OTHER: No other significant finding. IMPRESSION: No significant interval change. Cardiomegaly with mild pulmonary vascular congestion. Other findings as noted above TECHNICAL DOCUMENTATION: JOB ID: [id number] [employer]- All Rights Reserved
[2017-04-20 20:55] LABS: CREATINE KINASE MB 1.09 ng/mL (<4.55)
--- NOTE | 2017-04-20 22:07 | ER Document Report ---
ED General - General Chief Complaint: Weakness Stated Complaint: ALTERED/WEAKNESS Time Seen by Provider: 04/20/17 18:41 Mode of Arrival: Ambulatory Information source: Patient Notes: This is a 50-year-old female with a history of hypertension, CHF who presents to the emergency room and VTE who presents to the emergency room with generalized weakness. Patient states she felt like she was going to faint. She went to the right a checked her blood pressure and it was 79/60. Patient denies any chest pain, shortness of breath. She denies any changes in her weight. She is followed by the cardiology service at [facility] and she has an appointment on Tuesday. TRAVEL OUTSIDE OF THE [place] IN LAST 30 DAYS: No - HPI Onset: Just prior to arrival Onset/Duration: Gradual Quality of pain: No pain Severity: None Pain Level: Denies Associated symptoms: Weakness. denies: Chest pain, Fever, Shortness of breath Exacerbated by: Denies Relieved by: Denies Similar symptoms previously: Yes Recently seen / treated by doctor: Yes - Related Data Allergies/Adverse Reactions: No Known Allergies Allergy (Verified 04/20/17 18:35) Past Medical History - General Information source: Patient - Social History Smoking Status: Never Smoker Cigarette use (# per day): No Chew tobacco use (# tins/day): No Frequency of alcohol use: None Drug Abuse: None Lives with: Family Family History: Reviewed & Not Pertinent Patient has suicidal ideation: No Patient has homicidal ideation: No - Past Medical History Cardiac Medical History: Reports: Hx Congestive Heart Failure, Hx Hypertension, Hx Pulmonary Embolism Pulmonary Medical History: Denies: Hx Tuberculosis Renal/ Medical History: Denies: Hx Peritoneal Dialysis Psychiatric Medical History: Reports: Hx Depression Past Surgical History: Reports: Hx Cardiac Surgery - pacer/defib placement, Hx Hysterectomy, Hx Internal Defibrillator, Hx Orthopedic Surgery - total right knee replacement, Hx Pacemaker, Hx Tubal Ligation. Denies: Hx Appendectomy, Hx Bowel Surgery, Hx Section, Hx Cholecystectomy, Hx Coronary Artery Bypass Graft, Hx Gastric Bypass Surgery, Hx Herniorrhaphy, Hx Mastectomy, Hx Tonsillectomy - Immunizations Hx Diphtheria, Pertussis, Tetanus Vaccination: Yes Hx Pneumococcal Vaccination: 09/26/10 Review of Systems - Review of Systems Constitutional: denies: Chills, Fever EENT: No symptoms reported Cardiovascular: No symptoms reported Respiratory: No symptoms reported Gastrointestinal: No symptoms reported Genitourinary: No symptoms reported Female Genitourinary: No symptoms reported Musculoskeletal: No symptoms reported Skin: No symptoms reported Hematologic/Lymphatic: No symptoms reported Neurological/Psychological: No symptoms reported Physical Exam - Vital signs Vitals: Temp Pulse Resp BP Pulse Ox 97.5 F 60 18 119/91 H 97 04/20/17 18:24 04/20/17 18:24 04/20/17 18:24 04/20/17 18:24 04/20/17 18:24 Notes: Physical exam: GENERAL: 50-year-old female, alert and oriented 3, no acute distress HEAD: Atraumatic, normocephalic. EYES: Pupils equal round and reactive to light, extraocular movements intact, sclera anicteric, conjunctiva are normal. ENT: TMs normal, nares patent, oropharynx clear without exudates. Moist mucous membranes. NECK: Normal range of motion, supple without lymphadenopathy or JVD. LUNGS: Breath sounds clear to auscultation bilaterally and equal. No wheezes rales or rhonchi. HEART: Regular rate and rhythm without murmurs, rubs or gallops. ABDOMEN: Soft, normoactive bowel sounds. No tenderness to palpation. No guarding, no rebound. No masses appreciated. EXTREMITIES: Normal range of motion, no pitting or edema. No clubbing or cyanosis. NEUROLOGICAL: Cranial nerves II through XII grossly intact. Motor 5/5, sensory grossly intact, sensory normal,normal speech, normal gait. PSYCH: Normal mood, normal affect. SKIN: Warm, Dry, normal turgor, no rashes or lesions noted. Course - Vital Signs Vital signs: Temp Pulse Resp BP Pulse Ox 97.7 F 61 17 133/93 H 98 04/20/17 22:53 04/20/17 22:53 04/20/17 22:53 04/20/17 22:53 04/20/17 22:53 - Laboratory Result Diagrams: 04/20/17 18:55 04/20/17 18:55 Laboratory results interpreted by me: 04/20/17 04/20/17 04/20/17 18:55 18:55 18:55 RDW 15.3 H Carbon Dioxide 21 L Urine Urobilinogen 2.0 H Discharge - Discharge Clinical Impression: Generalized weakness Condition: Stable Disposition: HOME, SELF-CARE Additional Instructions: Recommendations: Continue current medicines. Check your blood pressure before taking the blood pressure medicines. If your blood pressures a little low, hold off on taking the blood pressure medicines. These medicines sometimes build up in your system and can cause generalized weakness. Follow-up at [facility] as planned this Tuesday. Bring a copy of today's chest x-ray, chest x-ray report, and labs. Return to the emergency room for any chest pain, shortness of breath or any concerns or getting worse. Referrals: TOMEKA MORGAN MD [Primary Care Provider] - Follow up as needed
[2017-04-20 22:55] VITALS: BP 133/93
--- NOTE | 2017-04-21 17:11 | EKG REPORT ---
SEVERITY:- ABNORMAL ECG - SINUS RHYTHM VENTRICULAR BIGEMINY FIRST DEGREE AV BLOCK LEFT ATRIAL ABNORMALITY LVH WITH IVCD AND SECONDARY REPOL ABNRM : Confirmed by: Helen Rolon MD 21-Apr-2017 17:09:53
== END 2017-04-20 22:53 | disposition home or self-care (01) ==
LOC: ER 18:13
DX: R53.1 Weakness (principal); I11.0 Hypertensive heart disease with heart failure; I50.9 Heart failure, unspecified; Z86.711 Personal history of pulmonary embolism; Z95.810 Presence of automatic (implantable) cardiac defibrillator
CPT/HCPCS: 36415; 71020; 80053; 81001; 82550; 82553; 83880; 84484; 85025; 93005; 93010; 99285

== ENCOUNTER 2018-01-15 23:15 | Emergency (ER) | payer MEDICARE ==
--- NOTE | 2018-01-16 00:04 | EKG REPORT ---
SEVERITY:- ABNORMAL ECG - SINUS RHYTHM VENTRICULAR ECTOPICS FIRST DEGREE AV BLOCK MAXIMUS, CONSIDER BIATRIAL ABNORMALITIES LVH WITH IVCD, LAD AND SECONDARY REPOL ABNRM : Confirmed by: Gerardo Castro 16-Jan-2018 00:03:25
--- NOTE | 2018-01-16 00:06 | ER Document Report ---
ED General - General Chief Complaint: Other Stated Complaint: DEFIBRILLATOR PROBLEM Time Seen by Provider: 01/15/18 23:45 Notes: Patient is a 51-year-old female with a past medical history of CHF with an associated AICD who presents with concerns that her AICD is alarming. Patient reports that 5 times in the past 2 days she has felt like her device beeped and vibrated in her chest wall. She states that on all of these occasions she sent a transmission to her edging machine feeder who reviewed her devices readings and noted that nothing was wrong and no alarms have been detected. The patient states that tonight after it happened again she became so anxious she came to the emergency department as she was afraid something was going to happen. She states that her edging machine feeder told her that she did not feel she needed to come to the emergency department that she could do so however she wanted to. The patient has no history of similar events in the past she denies any chest pain, shortness of breath, nausea, vomiting or syncope. She denies any AICD firings. She does admit to feeling extremely anxious particularly given that she lives alone. TRAVEL OUTSIDE OF THE [place] IN LAST 30 DAYS: No - Related Data Allergies/Adverse Reactions: No Known Allergies Allergy (Verified 01/15/18 23:21) Past Medical History - General Information source: Patient - Social History Smoking Status: Never Smoker Frequency of alcohol use: None Drug Abuse: None Lives with: Alone Family History: Reviewed & Not Pertinent - Past Medical History Cardiac Medical History: Reports: Hx Congestive Heart Failure, Hx Hypertension, Hx Pulmonary Embolism Pulmonary Medical History: Denies: Hx Tuberculosis Renal/ Medical History: Denies: Hx Peritoneal Dialysis Psychiatric Medical History: Reports: Hx Depression Past Surgical History: Reports: Hx Cardiac Surgery - pacer/defib placement, Hx Hysterectomy, Hx Internal Defibrillator, Hx Orthopedic Surgery - total right knee replacement, Hx Pacemaker, Hx Tubal Ligation. Denies: Hx Appendectomy, Hx Bowel Surgery, Hx Section, Hx Cholecystectomy, Hx Coronary Artery Bypass Graft, Hx Gastric Bypass Surgery, Hx Herniorrhaphy, Hx Mastectomy, Hx Tonsillectomy - Immunizations Hx Diphtheria, Pertussis, Tetanus Vaccination: Yes Hx Pneumococcal Vaccination: 09/26/10 Review of Systems - Review of Systems Notes: Constitutional: Negative for fever. HENT: Negative for sore throat. Eyes: Negative for visual changes. Cardiovascular: Negative for chest pain. Respiratory: Negative for shortness of breath. Gastrointestinal: Negative for abdominal pain, vomiting or diarrhea. Genitourinary: Negative for dysuria. Musculoskeletal: Negative for back pain. Skin: Negative for rash. Neurological: Negative for headaches, weakness or numbness. 10 point ROS negative except as marked above and in HPI. Physical Exam - Vital signs Vitals: Temp Pulse Resp BP Pulse Ox 98 F 40 L 18 121/79 98 01/15/18 23:31 01/15/18 23:31 01/15/18 23:31 01/15/18 23:31 01/15/18 23:31 Interpretation: Bradycardic - Not bradycardic, my assessment Notes: PHYSICAL EXAMINATION: GENERAL: Well-appearing, well-nourished and in no acute distress. HEAD: Atraumatic, normocephalic. EYES: Pupils equal round and reactive to light, extraocular movements intact, sclera anicteric, conjunctiva are normal. ENT: nares patent, oropharynx clear without exudates. Moist mucous membranes. NECK: Normal range of motion, supple without lymphadenopathy LUNGS: Breath sounds clear to auscultation bilaterally and equal. No wheezes rales or rhonchi. HEART: Regular rate and rhythm without murmurs ABDOMEN: Soft, nontender, normoactive bowel sounds. No guarding, no rebound. No masses appreciated. EXTREMITIES: Normal range of motion, no pitting or edema. No cyanosis. NEUROLOGICAL: No focal neurological deficits. Moves all extremities spontaneously and on command. PSYCH: Normal mood, normal affect. SKIN: Warm, Dry, normal turgor, no rashes or lesions noted. Course - Re-evaluation Re-evalutation: 01/16/18 00:05 Patient presents with her defibrillator alarming on her although not firing. She has sent 2 transmissions to her edging machine feeder today and her cardio was noted that these were completely fine without any abnormalities and the device does not report any defects on interrogation. The patient states that she is extremely anxious, "her nerves are shot" and that is the main reason she came to the emergency department. I do not see any indication for labs or imaging. We have interrogated the device is [employer] here to evaluate for any possible abnormalities. At this unremarkable plan for discharge home with follow-up with her edging machine feeder as scheduled. 01/16/18 00:41 The [employer] device outside sales representative insurance has evaluated all of the patient's alarms notes that she has not had any alarms in the past several months. He states there is no dysrhythmias or defibrillations. He states that the patient's characterization of the alarms and vibrations and at times it which they have occurred is not consistent with any alarms at this device can generate. At this time the exact cause of why the patient is experiencing these symptoms is uncertain to me but I do not suspect any life-threatening cause. At this time will discharge with return precautions and follow-up recommendations. Verbal discharge instructions given a the bedside and opportunity for questions given. Patient is in agreement with this plan and has verbalized understanding of return precautions and the need for primary care follow-up in the next 24-72 hours. - Vital Signs Vital signs: Temp Pulse Resp BP Pulse Ox 98 F 40 L 18 121/79 98 01/15/18 23:31 01/15/18 23:31 01/15/18 23:31 01/15/18 23:31 01/15/18 23:31 Discharge - Discharge Clinical Impression: Automatic implantable cardioverter-defibrillator problem, Anxiety Condition: Good Disposition: HOME, SELF-CARE Additional Instructions: Your device has been interrogated and does not show any abnormalities. The exact cause of what is making her device alarm is uncertain at this time although the [employer] outside sales representative insurance has assured us that your device has not alarmed. Please follow-up with your edging machine feeder. Return for any additional concerns you may have. Referrals: TOMEKA MORGAN MD [Primary Care Provider] - Follow up as needed
[2018-01-16] MEDS: DIAZEPAM 5 MG TABLET PO ONE (00:17)
[2018-01-16 02:41] VITALS: BP 118/67
== END 2018-01-16 02:41 | disposition home or self-care (01) ==
LOC: ER 23:15
DX: T82.9XXA Unspecified complication of cardiac and vascular prosthetic device, implant and graft, initial encounter (principal); Y71.8 Miscellaneous cardiovascular devices associated with adverse incidents, not elsewhere classified; F41.9 Anxiety disorder, unspecified; I11.0 Hypertensive heart disease with heart failure; I50.9 Heart failure, unspecified; Z95.810 Presence of automatic (implantable) cardiac defibrillator; Z86.711 Personal history of pulmonary embolism
CPT/HCPCS: 93005; 99284; 93010; A9270

== ENCOUNTER → 2018-03-06 | Outpatient (CLI) | payer MEDICARE ==
--- NOTE | 2018-03-08 08:03 | WOMENS IMAGING REPORT ---
EXAM DESCRIPTION: BILAT SCREENING MAMMO W/CAD COMPLETED DATE/TIME: 03/06/2018 2:51 pm REASON FOR STUDY: ROUTINE SCREENING;Z12.31 Z12.31 ENCNTR SCREEN MAMMOGRAM FOR MALIGNANT NEOPLASM OF DEBORAH COMPARISON: Multiple since 2008 TECHNIQUE: Standard craniocaudal and mediolateral oblique views of each breast recorded using Circlefivea l acquisition. LIMITATIONS: None. FINDINGS: Findings present which are benign by mammographic criteria. No suspicious masses, calcifi cations or architectural distortion. Pertinent benign findings: Stable bilateral benign fibroadenomas. Read with the assistance of CAD. .[facility] - R2 Cenova Version 1.3 .[facility] - R2 Cenova Version 1.3 .[facility] - R2 Cenova Version 2.4 .[facility] - R2 Cenova Version 2.4 .[facility] - R2 Dehairer Version 9.2 Benign mammographic findings may include one or more of the following: Smooth masses, popcorn/rim/co arse calcifications, asymmetries, post-procedure changes, and lesions with long-standing stability. IMPRESSION: BENIGN MAMMOGRAPHIC FINDINGS. BIRADS 2 BREAST DENSITY: b. There are scattered areas of fibroglandular density. BIRAD: 2 BENIGN FINDING(S) RECOMMENDATION: ROUTINE SCREENING Please continue yearly bilateral screening mammography in February 2019 COMMENT: The patient has been notified of the results by letter per MQSA requirements. Additional no tification policies are in place for contacting patient with suspicious or incomplete findings. Quality ID #[id number]: The [employer] recommends an annual screening mammogram for women aged 40 years or over. This facility utilizes a reminder system to ensure that all patients receive reminder letters, and/or direct phone calls for appointments. This includes reminders for routine scr eening mammograms, diagnostic mammograms, or other Breast Imaging Interventions when appropriate. Th is patient will be placed in the appropriate reminder system. The [employer] (ACR) has developed recommendations for screening MRI of the breast s in certain patient populations, to be used in conjunction with mammography. Breast MRI surveillanc e may be appropriate for women with more than 20% lifetime risk of developing breast cancer as deter mined by genetic testing, significant family history of the disease, or history of mantle radiation f or Hodgkins Disease. ACR Practice Guidelines 2008. TECHNICAL DOCUMENTATION: FINDING NUMBER: (1) ASSESSMENT: (1) JOB ID: [id number] [email or web address]- All Rights Reserved Reading location - IP/workstation name: [email or web address]
== END ==
LOC: WI 14:39
PROVIDERS: ATTEND Internal Medicine
DX: Z12.31 Encounter for screening mammogram for malignant neoplasm of breast (principal)
CPT/HCPCS: 77067

== ENCOUNTER 2018-09-21 14:36 | Emergency (ER) | payer MEDICARE ==
[2018-09-21] MEDS ORDERED: ASPIRIN 81 MG TABLET, CHEWABLE PO ONE (16:01)
[2018-09-21] MEDS ORDERED: PROMETHAZINE HCL 25 MG TABLET PO ONE (16:02)
[2018-09-21] MEDS ORDERED: HYDROCODONE/ACETAMINOPHEN 5-325 MG TABLET PO ONE (16:02)
--- NOTE | 2018-09-21 16:06 | ER Document Report ---
ED Medical Screen (RME) - General Chief Complaint: Chest Pain Stated Complaint: CHEST PAIN Time Seen by Provider: 09/21/18 16:00 Notes: Patient says that she has been having pain in her left lower thoracic back region since about 1130 or noon today. It goes up her back and around into the left front chest. It is pain on like she is ever had before. Patient has had a history of heart disease and has a pacemaker defibrillator, history of CHF. She also has a history of pulmonary emboli, one in October of this year and another one 2-3 years ago. Her only medication for the PEs is aspirin daily because she cannot afford a prescription for the anticoagulants. She does not do well on warfarin and that is why she is not taking it. She has had some recent cough. No fevers. No vomiting or diarrhea. Appears to be uncomfortable. TRAVEL OUTSIDE OF THE [place] IN LAST 30 DAYS: No - Related Data Allergies/Adverse Reactions: No Known Allergies Allergy (Verified 01/15/18 23:21) Past Medical History - Social History Chew tobacco use (# tins/day): No Frequency of alcohol use: Occasional Drug Abuse: None - Past Medical History Cardiac Medical History: Reports: Hx Congestive Heart Failure, Hx Hypercholesterolemia, Hx Hypertension, Hx Pulmonary Embolism Pulmonary Medical History: Denies: Hx Tuberculosis Endocrine Medical History: Denies: Hx Diabetes Mellitus Type 1, Hx Diabetes Mellitus Type 2 Renal/ Medical History: Denies: Hx Peritoneal Dialysis Psychiatric Medical History: Reports: Hx Depression Past Surgical History: Reports: Hx Cardiac Surgery - pacer/defib placement, Hx Hysterectomy, Hx Internal Defibrillator, Hx Orthopedic Surgery - total right knee replacement, Hx Pacemaker, Hx Tubal Ligation. Denies: Hx Appendectomy, Hx Bowel Surgery, Hx Section, Hx Cholecystectomy, Hx Coronary Artery Bypass Graft, Hx Gastric Bypass Surgery, Hx Herniorrhaphy, Hx Mastectomy, Hx Tonsillectomy - Immunizations Hx Diphtheria, Pertussis, Tetanus Vaccination: Yes Physical Exam - Vital signs Vitals: Temp Pulse Resp BP Pulse Ox 97.6 F 89 18 140/102 H 98 09/21/18 14:53 09/21/18 14:53 09/21/18 14:53 09/21/18 14:53 09/21/18 14:53 Course - Vital Signs Vital signs: Temp Pulse Resp BP Pulse Ox 97.6 F 89 18 140/102 H 98 09/21/18 14:53 09/21/18 14:53 09/21/18 14:53 09/21/18 14:53 09/21/18 14:53 Doctor's Discharge - Discharge Referrals: TOMEKA MORGAN MD [Primary Care Provider] - Follow up as needed
--- NOTE | 2018-09-21 16:38 | RADIOLOGY REPORT (SQ) ---
EXAM DESCRIPTION: CHEST SINGLE VIEW COMPLETED DATE/TIME: 09/21/2018 4:30 pm REASON FOR STUDY: Chest pain COMPARISON: 04/20/2018 NUMBER OF VIEWS: One view. TECHNIQUE: Single frontal radiographic view of the chest acquired. LIMITATIONS: None. FINDINGS: LUNGS AND PLEURA: No opacities, masses or pneumothorax. No pleural effusion. MEDIASTINUM AND HILAR STRUCTURES: No masses. Contour normal. HEART AND VASCULAR STRUCTURES: Heart enlarged without failure. Normal vasculature. BONES: No acute findings. HARDWARE: Hardware unchanged. OTHER: No other significant finding. IMPRESSION: HEART ENLARGED WITHOUT FAILURE. NO OTHER SIGNIFICANT RADIOGRAPHIC FINDING IN THE CHEST. TECHNICAL DOCUMENTATION: JOB ID: [id number] [employer]- All Rights Reserved Reading location - IP/workstation name: [email or web address]
[2018-09-21 17:01] LABS: ABSOLUTE EOSINOPHILS # (AUTO) 0.1 10^3/uL (0.0-0.6); ABSOLUTE MONOCYTES (AUTO) 0.5 10^3/uL (0.1-1.4); ABSOLUTE NEUT (AUTO) 3.5 10^3/uL (1.7-8.2); BASOPHILS % (AUTO) 0.8 % (0-2); EOSINOPHILS % (AUTO) 2.2 % (0-6); HEMOGLOBIN 13.1 g/dL (12.0-15.5); LYMPHOCYTES % (AUTO) 33.2 % (13-45); MEAN CORPUSCULAR HEMOGLOBIN 30.2 pg (27.0-33.4); MEAN CORPUSCULAR HGB CONC 34.5 g/dL (32.0-36.0); MEAN CORPUSCULAR VOLUME 88 fl (80-97); MONOCYTES % (AUTO) 7.6 % (3-13); PLATELET COUNT 208 10^3/uL (150-450); RED BLOOD COUNT 4.34 10^6/uL (3.72-5.28); SEGMENTED NEUTROPHILS % (AUTO) 56.2 % (42-78); TOTAL CELLS COUNTED % (AUTO) 100 %; WHITE BLOOD COUNT 6.2 10^3/uL (4.0-10.5)
[2018-09-21 17:20] LABS: ALANINE AMINOTRANSFERASE 18 U/L (9-52); ALBUMIN 4.6 g/dL (3.5-5.0); ALKALINE PHOSPHATASE 57 U/L (38-126); ANION GAP 11 (5-19); ASPARTATE AMINO TRANSFERASE 27 U/L (14-36); BILIRUBIN,DIRECT 0.2 mg/dL (0.0-0.4); BILIRUBIN,TOTAL 0.4 mg/dL (0.2-1.3); BLOOD UREA NITROGEN 15 mg/dL (7-20); CARBON DIOXIDE 29 mmol/L (22-30); CHLORIDE 105 mmol/L (98-107); CREATINE KINASE 179 U/L (30-135); GLUCOSE 98 mg/dL (75-110); SODIUM 144.5 mmol/L (137-145); TOTAL PROTEIN 7.6 g/dL (6.3-8.2)
[2018-09-21 17:31] LABS: CREATINE KINASE MB 0.98 ng/mL (<4.55)
[2018-09-21 17:34] LABS: TROPONIN I < 0.012 ng/mL
--- NOTE | 2018-09-21 18:12 | RADIOLOGY REPORT (SQ) ---
EXAM DESCRIPTION: CTA CHEST COMPLETED DATE/TIME: 09/21/2018 5:58 pm REASON FOR STUDY: Left chest pain and back pain, Hx PEs COMPARISON: Chest radiograph TECHNIQUE: CT scan of the chest performed using helical scanning technique with dynamic intravenous contrast injection. Images reviewed with lung, soft tissue and bone windows. Reconstructed coronal and sagittal MPR images reviewed. Additional 3 dimensional post-processing performed to develop Maximal Intensity Projection images (NC P). All images stored on PACS. All CT scanners at this facility use dose modulation, iterative reconstruction, and/or weight based d osing when appropriate to reduce radiation dose to as low as reasonably achievable (ALARA). [facility]: Dose Right [facility]: CareDose [facility]: Dose Right [facility]: Teradose 4D [facility]: [employer] CONTRAST TYPE AND DOSE: contrast/concentration: Isovue 350.00 mg/ml; Total Contrast Delivered: 86.0 ml; Total Saline Delivered: 110.0 ml Contrast bolus optimized for the pulmonary arteries. Not diagnostic for the aorta. RENAL FUNCTION: GFR > 60. RADIATION DOSE: CT Rad equipment meets quality standard of care and radiation dose reduction techniq ues were employed. CTDIvol: 22.6 - 46.3 mGy. DLP: 869 mGy-cm. . LIMITATIONS: None. FINDINGS: LUNGS AND PLEURA: No masses, infiltrates, or pneumothorax. No pleural effusions or pleura l calcifications. AORTA AND GREAT VESSELS: No aneurysm. Contrast bolus not optimized for the aorta. HEART: Marked cardiac enlargement. Pacemaker defibrillator. No significant coronary artery calcifica tions. PULMONARY ARTERIES: No emboli visualized in the main pulmonary arteries or the segmental branches. HILAR AND MEDIASTINAL STRUCTURES: No identified masses or abnormal nodes. HARDWARE: Pacemaker defibrillator. UPPER ABDOMEN: No significant findings. Limited exam. THYROID AND OTHER SOFT TISSUES: No masses. No adenopathy. BONES: No acute or significant finding. 3D MIPS: Confirm above findings. OTHER: No other significant finding. IMPRESSION: No pulmonary emboli. Marked cardiac enlargement. COMMENT: Quality ID # [id number]: Final reports with documentation of one or more dose reduction techniques (e.g., Automated exposure control, adjustment of the mA and/or kV according to patient size, use of iterative reconstruction technique) TECHNICAL DOCUMENTATION: JOB ID: [id number] [employer]- All Rights Reserved Reading location - IP/workstation name: [email or web address]
--- NOTE | 2018-09-21 18:29 | ER Document Report ---
ED General - General Chief Complaint: Chest Pain Stated Complaint: CHEST PAIN Time Seen by Provider: 09/21/18 16:00 Mode of Arrival: Ambulatory Information source: Patient, [facility] Records Notes: 53-year-old female with congestive heart failure (EF 10%) with pacemaker and defibrillator, coronary artery disease,, hypertension, hyperlipidemia presents with complaint of chest and back pain. Patient states that 6 hours prior to arrival while at rest. Patient states that the pain began around her left shoulder blade and then worsened and radiated to her chest. She describes the pain as sharp, worse with. Any recent injury. Patient denies any shocks from her defibrillator, palpitations, nausea, diaphoresis, lightheadedness. Patient does have a history of pulmonary embolism but is not currently on any anticoagulation. TRAVEL OUTSIDE OF THE [place] IN LAST 30 DAYS: No - HPI Onset: This afternoon Quality of pain: Burning, Stabbing Severity: Moderate Pain Level: 2 Associated symptoms: Body/muscle aches, Chest pain. denies: Headache, Hurts to breath, Nausea, Vomiting, Shortness of breath, Sweating, Weakness - Related Data Allergies/Adverse Reactions: No Known Allergies Allergy (Verified 01/15/18 23:21) Past Medical History - General Information source: Patient, Friend, [facility] Records - Social History Smoking Status: Never Smoker Chew tobacco use (# tins/day): No Frequency of alcohol use: Occasional Drug Abuse: None Lives with: Alone Family History: Reviewed & Not Pertinent Patient has suicidal ideation: No Patient has homicidal ideation: No - Past Medical History Cardiac Medical History: Reports: Hx Congestive Heart Failure, Hx Hypercholesterolemia, Hx Hypertension, Hx Pulmonary Embolism Pulmonary Medical History: Denies: Hx Tuberculosis Endocrine Medical History: Denies: Hx Diabetes Mellitus Type 1, Hx Diabetes Mellitus Type 2 Renal/ Medical History: Denies: Hx Peritoneal Dialysis Psychiatric Medical History: Reports: Hx Depression Past Surgical History: Reports: Hx Cardiac Surgery - pacer/defib placement, Hx Hysterectomy, Hx Internal Defibrillator, Hx Orthopedic Surgery - total right knee replacement, Hx Pacemaker, Hx Tubal Ligation. Denies: Hx Appendectomy, Hx Bowel Surgery, Hx Section, Hx Cholecystectomy, Hx Coronary Artery Bypass Graft, Hx Gastric Bypass Surgery, Hx Herniorrhaphy, Hx Mastectomy, Hx Tonsillectomy - Immunizations Hx Diphtheria, Pertussis, Tetanus Vaccination: Yes Hx Pneumococcal Vaccination: 09/26/10 Review of Systems - Review of Systems Notes: REVIEW OF SYSTEMS: CONSTITUTIONAL : Denies fever, chills, or sweats. Denies recent illness. Den ies weight loss, recent hospitalizations. EENT: Denies visual changes, eye pain. Denies sore throat, oral lesions, difficulty swallowing. CARDIOVASCULAR: Denies palpitations. Denies lower extremity edema. RESPIRATORY: Denies cough. Denies shortness of breath, wheezing. GASTROINTESTINAL: Denies abdominal pain or distention. Denies nausea, vomiting, or diarrhea. Denies blood in vomitus, stools, or per rectum. Denies black, tarry stools. Denies constipation. GENITOURINARY: Denies difficulty urinating, painful urination, frequency, blood in urine, or vaginal discharge. MUSCULOSKELETAL: Denies neck pain or stiffness. Denies joint pain or swelling. SKIN: Denies rash, lesions or sores. HEMATOLOGIC : Denies easy bruising or bleeding. LYMPHATIC: Denies swollen glands. NEUROLOGICAL: Denies confusion or altered mental status. Denies loss of consciousness. Denies dizziness or lightheadedness. Denies headache. Denies weakness or paralysis. Denies problems difficulty with ambulation, slurred speech. Denies sensory loss, numbness, or tingling. Denies seizures. PSYCHIATRIC: Denies anxiety or stress. Denies depression, suicidal ideation, or homicidal ideation. Denies visual or auditory hallucinations. Physical Exam - Vital signs Vitals: Temp Pulse Resp BP Pulse Ox 97.6 F 89 18 140/102 H 98 09/21/18 14:53 09/21/18 14:53 09/21/18 14:53 09/21/18 14:53 09/21/18 14:53 - Notes Notes: PHYSICAL EXAMINATION: GENERAL: Well-appearing, well-nourished and in no acute distress. HEAD: Atraumatic, normocephalic. EYES: Pupils equal round and reactive to light, extraocular movements intact, conjunctiva are normal. ENT: Nares patent, oropharynx clear without exudates. Moist mucous membranes. NECK: Normal range of motion, supple without lymphadenopathy LUNGS: Breath sounds clear to auscultation bilaterally and equal. No wheezes rales or rhonchi. HEART: Regular rate and rhythm without murmurs. Reproducible anterior chest wall tenderness. ABDOMEN: Soft, nontender, nondistended abdomen. No guarding, no rebound. No masses appreciated. Female : deferred Musculoskeletal: Normal range of motion, no pitting or edema. No cyanosis. Tenderness to palpation along the paraspinal musculature of the thoracic spine with associated increased muscle tonicity. NEUROLOGICAL: Cranial nerves grossly intact. Normal speech, normal gait. Normal sensory, motor exams PSYCH: Normal mood, normal affect. SKIN: Warm, Dry, normal turgor, no rashes or lesions noted. Course - Re-evaluation Re-evalutation: Laboratory 09/21/18 09/21/18 09/21/18 16:45 16:45 16:45 WBC 6.2 RBC 4.34 Hgb 13.1 Hct 38.0 MCV 88 MCH 30.2 MCHC 34.5 RDW 14.0 Plt Count 208 Seg Neutrophils % 56.2 Lymphocytes % 33.2 Monocytes % 7.6 Eosinophils % 2.2 Basophils % 0.8 Absolute Neutrophils 3.5 Absolute Lymphocytes 2.0 Absolute Monocytes 0.5 Absolute Eosinophils 0.1 Absolute Basophils 0.0 Sodium 144.5 Potassium 4.0 Chloride 105 Carbon Dioxide 29 Anion Gap 11 BUN 15 Creatinine 0.73 Est GFR ( Amer) > 60 Est GFR (Non-Af Amer) > 60 Glucose 98 Calcium 10.0 Total Bilirubin 0.4 Direct Bilirubin 0.2 Neonat Total Bilirubin Not Reportable Neonat Direct Bilirubin Not Reportable Neonat Indirect Bili Not Reportable AST 27 ALT 18 Alkaline Phosphatase 57 Creatine Kinase 179 H CK-MB (CK-2) 0.98 Troponin I < 0.012 Total Protein 7.6 Albumin 4.6 09/21/18 20:00 WBC RBC Hgb Hct MCV MCH MCHC RDW Plt Count Seg Neutrophils % Lymphocytes % Monocytes % Eosinophils % Basophils % Absolute Neutrophils Absolute Lymphocytes Absolute Monocytes Absolute Eosinophils Absolute Basophils Sodium Potassium Chloride Carbon Dioxide Anion Gap BUN Creatinine Est GFR ( Amer) Est GFR (Non-Af Amer) Glucose Calcium Total Bilirubin Direct Bilirubin Neonat Total Bilirubin Neonat Direct Bilirubin Neonat Indirect Bili AST ALT Alkaline Phosphatase Creatine Kinase CK-MB (CK-2) Troponin I < 0.012 Total Protein Albumin Chest X-Ray 09/21/18 16:01 IMPRESSION: HEART ENLARGED WITHOUT FAILURE. NO OTHER SIGNIFICANT RADIOGRAPHIC FINDING IN THE CHEST. Chest/Abdomen CTA 09/21/18 16:03 IMPRESSION: No pulmonary emboli. Marked cardiac enlargement. 53-year-old female presents with complaint of chest and back pain that started 6 hours prior to arrival. Patient was placed on rn delivery and EKG was obtained which showed the patient to be in sinus rhythm with a first-degree AV block and intermittent PVCs with is not significantly changed from previous EKG obtained. Patient did receive morphine, Zofran during her ED course. Because of the patient's previous PE and extensive cardiac history CTA of the chest was obtained to assess for dissection, pulmonary embolism which were both absent. Cardiac enzymes were within normal notes. Delta troponin also within normal limits. CBC, CMP are unremarkable. Chest x-ray shows cardiac enlargement without evidence of failure. 09/21/18 22:08 On reevaluation patient is sleeping soundly. She is arousable and when asked she states that her pain is greatly improved. Her friend is at the bedside and states that the patient can stay with her tonight. Patient encouraged to return with any concerns. Patient states that she cannot stay in the hospital or go to her friend's house because she has dogs that she must take care of. Patient was evaluated and treated as appropriate for the patient's presenting symptoms and complaint, with consideration of any critical or life threatening conditions that may be associated with their obtained history and exam as noted above. All results were discussed with patient. Patient provided the opportunity to ask questions, and express concerns. Patient was educated on treatments based on their presumed diagnosis as noted above. At this time we will discharge the pa tient with return precautions and follow-up recommendations. Verbal discharge instructions given a the bedside. Medication warnings reviewed. Patient is in agreement with this plan and has verbalized understanding of return precautions. After careful consideration I feel that that patient can be safely discharged from the emergency department, they were advised to followup with a primary care physician in 2-3 days. Dictation on this chart was performed using voice recognition software and may result in unintended grammatical, spelling, syntax or errors. 09/22/18 02:27 - Vital Signs Vital signs: Temp Pulse Resp BP Pulse Ox 98.5 F 89 13 127/85 H 96 09/21/18 22:30 09/21/18 14:53 09/21/18 22:00 09/21/18 22:30 09/21/18 22:00 - Laboratory Result Diagrams: 09/21/18 16:45 09/21/18 16:45 Laboratory results interpreted by me: 09/21/18 16:45 Creatine Kinase 179 H - Diagnostic Test Radiology reviewed: Image reviewed, Reports reviewed - EKG Interpretation by Me EKG shows normal: Sinus rhythm Rate: Normal Rhythm: NSR, PVC's Heart block present: 1st Degree When compared to previous EKG there are: No significant change Discharge - Discharge Clinical Impression: Chest wall pain Strain of thoracic spine Qualifiers: Encounter type: initial encounter Qualified Code(s): S29.019A - Strain of muscle and tendon of unspecified wall of thorax, initial encounter Chest pain Qualifiers: Chest pain type: unspecified Qualified Code(s): R07.9 - Chest pain, unspecified Condition: Good Disposition: HOME, SELF-CARE Instructions: Chest Wall Pain ([facility]), Chest Pain of Unclear Cause ([facility]), Upper Back Strain ([facility]) Additional Instructions: You were seen today for chest pain. The exact cause of your pain is unclear. However, based on your cardiac enzyme testing, chest x-ray, and EKG it does not appear that it is from an immediately life-threatening cause at this time. Although your testing here is normal is critical that you follow-up with your primary care physician for continued evaluation of this chest pain and possible stress testing. I recommended you see your physician within the next 24-48 hours to be evaluated for consideration of a stress test. Please return to emergency department immediately if you have worsening of your chest pain, shortness of breath, vomiting, become unable to exert yourself due to pain or difficulty breathing, you pass out, or have any pain that radiates into your arms, jaw, or back. Please also return if you have any additional symptoms that are concerning to you. Prescriptions: Hydrocodone/Acetaminophen [Mckinney 5-325 mg Tablet] 1 tab PO Q6H #10 tablet Referrals: TOMEKA MORGAN MD [ACTIVE STAFF] - Follow up tomorrow
[2018-09-21] MEDS ORDERED: ONDANSETRON HCL INJ/PF 4 MG/2 ML SDV IV ONE (19:26)
[2018-09-21] MEDS ORDERED: MORPHINE SULFATE 10 MG/ML INJ IV ONE (19:26)
[2018-09-21 22:35] VITALS: BP 127/85
--- NOTE | 2018-09-22 14:54 | EKG REPORT ---
SEVERITY:- ABNORMAL ECG - SINUS RHYTHM MULTIFORM VENTRICULAR PREMATURE COMPLEXES FIRST DEGREE AV BLOCK LEFT ATRIAL ABNORMALITY LVH WITH IVCD AND SECONDARY REPOL ABNRM : Confirmed by: Gerardo Castro 22-Sep-2018 14:53:03
== END 2018-09-21 22:35 | disposition home or self-care (01) ==
LOC: ER 14:36
DX: R07.89 Other chest pain (principal); S29.012A Strain of muscle and tendon of back wall of thorax, initial encounter; X58.XXXA Exposure to other specified factors, initial encounter; I11.9 Hypertensive heart disease without heart failure; Z95.810 Presence of automatic (implantable) cardiac defibrillator; I25.10 Atherosclerotic heart disease of native coronary artery without angina pectoris; I44.0 Atrioventricular block, first degree; I49.3 Ventricular premature depolarization; Z86.711 Personal history of pulmonary embolism
CPT/HCPCS: 93005; 99285; 96374; 96375; 36415; 82553; 82550; 85025; 80053; 84484; 71045; 71275; 93010; A9270 ×3; J2270; J2405

== ENCOUNTER 2019-04-19 10:31 | Observation (INO) | payer MEDICARE ==
--- NOTE | 2019-04-19 11:15 | ER Document Report ---
ED General - General Chief Complaint: Chest Pain Stated Complaint: CHEST PAIN Time Seen by Provider: 04/19/19 11:02 Primary Care Provider: DOROTHEA RYAN PA-C [Primary Care Provider] - Follow up as needed TRAVEL OUTSIDE OF THE [place] IN LAST 30 DAYS: No - HPI Notes: Patient is a 53-year-old female with a history of PE, congestive heart failure (EF 10%) with pacemaker and defibrillator, coronary artery disease, hypertension, hyperlipidemia, recent cardiac ablation on April 03 at [place] who presents complaining of left-sided chest pain, shortness of breath, intermittent diaphoresis that is been present since yesterday. Patient states that she feels her symptoms at rest. No firing of the defib. The pain does not radiate. She is able to eat and drink without difficulty. She is urinating normally. Denies drug allergies. Patient is not currently on any blood thinning medications. Patient states that I am to call the phone number provided to speak with someone when she gets here and then consider transfer thereafter. Denies any headache, fever, neck pain, URI, sore throat, syncope, cough, wheeze, abdominal pain, nausea/vomiting/diarrhea, urinary retention, dysuria, hematuria, or rash. - Related Data Allergies/Adverse Reactions: sacubitril [From Entresto] Allergy (Verified 04/19/19 11:37) Hives valsartan [From Entresto] Allergy (Verified 04/19/19 11:37) Hives acetaminophen [From Percocet] Adverse Reaction (Verified 04/19/19 11:37) Hallucinations oxycodone [From Percocet] Adverse Reaction (Verified 04/19/19 11:37) Hallucinations Past Medical History - Social History Smoking Status: Never Smoker Frequency of alcohol use: Occasional Drug Abuse: None Family History: Reviewed & Not Pertinent Patient has suicidal ideation: No Patient has homicidal ideation: No - Past Medical History Cardiac Medical History: Reports: Hx Atrial Fibrillation, Hx Congestive Heart Failure, Hx Hypercholesterolemia, Hx Hypertension, Hx Pulmonary Embolism Pulmonary Medical History: Denies: Hx Tuberculosis Endocrine Medical History: Denies: Hx Diabetes Mellitus Type 1, Hx Diabetes Mellitus Type 2 Renal/ Medical History: Denies: Hx Peritoneal Dialysis Psychiatric Medical History: Reports: Hx Depression Past Surgical History: Reports: Hx Cardiac Surgery - pacer/defib placement, ablasion, Hx Hysterectomy, Hx Internal Defibrillator, Hx Orthopedic Surgery - partial right knee replacement, Hx Pacemaker, Hx Tubal Ligation. Denies: Hx Appendectomy, Hx Bowel Surgery, Hx Section, Hx Cholecystectomy, Hx Coronary Artery Bypass Graft, Hx Gastric Bypass Surgery, Hx Herniorrhaphy, Hx Mastectomy, Hx Tonsillectomy - Immunizations Hx Diphtheria, Pertussis, Tetanus Vaccination: Yes Hx Pneumococcal Vaccination: 09/26/10 Review of Systems - Review of Systems -: Yes All other systems reviewed and negative Physical Exam - Vital signs Vitals: Resp Pulse Ox 16 99 04/19/19 10:47 04/19/19 10:47 - Notes Notes: PHYSICAL EXAMINATION: GENERAL: Well-appearing, well-nourished and in no acute distress. HEAD: Atraumatic, normocephalic. EYES: Pupils equal round and reactive to light, extraocular movements intact, sclera anicteric, conjunctiva are normal. ENT: Nares patent and without discharge. oropharynx clear without exudates. No tonsilar hypertrophy or erythema. Moist mucous membranes. NECK: Normal range of motion, supple without lymphadenopathy LUNGS: Breath sounds clear to auscultation bilaterally and equal. No wheezes rales or rhonchi. HEART: Regular rate and rhythm without murmurs, rubs, gallops. ABDOMEN: Soft, nontender, nondistended abdomen. No guarding, no rebound. Normal bowel sounds present. No CVA tenderness bilaterally. Musculoskeletal: FROM to passive/active. Strength 5+/5. Zaria neg. No asymmetry to LE's. Extremities: No cyanosis, clubbing, or edema b/l. Peripheral pulses 2+. Capillary refill less than 3 seconds. NEUROLOGICAL: Normal speech, normal gait. PSYCH: Normal mood, normal affect. SKIN: Warm, Dry, normal turgor, no rashes or lesions noted. Course - Re-evaluation Re-evalutation: 04/19/19 11:12 Call placed to [facility] for consult. 04/19/19 11:24 I was able speak with Dr. Abdullahi, Cardio, who recommends just a basic work-up and include a CTA to further evaluate. If there is no clear-cut diagnosis chest pain observation would be appropriate here in our facility. If something is found and is concerning to have her transferred to [facility]. He also recommends possible echo once being admitted. He has reviewed that pericarditis/pericardial effusion is unlikely this far out from ablation proce dure as well as the immediate risk of PE, but she does have a history and a CT would be helpful to make sure there is no other large effusion, etc. 04/19/19 12:51 Patient's work-up was unremarkable. We will proceed to cardiac obs. Dr. Littlejohn has accepted patient to telemetry. - Vital Signs Vital signs: Temp Pulse Resp BP Pulse Ox 98.8 F 20 134/95 H 99 04/19/19 10:48 04/19/19 11:01 04/19/19 11:01 04/19/19 11:01 - Laboratory Result Diagrams: 04/19/19 11:19 04/19/19 11:19 Laboratory results interpreted by me: 04/19/19 04/19/19 11:19 11:19 RDW 14.4 H Sodium 136.4 L Discharge - Discharge Clinical Impression: Atypical chest pain Condition: Stable Disposition: ADMITTED OBSERVATION Admitting Provider: Annetta (Hospitalist) Unit Admitted: Telemetry Referrals: DOROTHEA RYAN PA-C [Primary Care Provider] - Follow up as needed
[2019-04-19 11:36] LABS: ABSOLUTE EOSINOPHILS # (AUTO) 0.1 10^3/uL (0.0-0.6); ABSOLUTE LYMPHOCYTES (AUTO) 2.1 10^3/uL (0.5-4.7); ABSOLUTE MONOCYTES (AUTO) 0.6 10^3/uL (0.1-1.4); ABSOLUTE NEUT (AUTO) 3.2 10^3/uL (1.7-8.2); BASOPHILS % (AUTO) 0.4 % (0-2); EOSINOPHILS % (AUTO) 1.7 % (0-6); HEMATOCRIT 38.4 % (36.0-47.0); HEMOGLOBIN 13.1 g/dL (12.0-15.5); LYMPHOCYTES % (AUTO) 35.3 % (13-45); MEAN CORPUSCULAR HEMOGLOBIN 29.3 pg (27.0-33.4); MEAN CORPUSCULAR HGB CONC 34.2 g/dL (32.0-36.0); MEAN CORPUSCULAR VOLUME 86 fl (80-97); MONOCYTES % (AUTO) 9.5 % (3-13); PLATELET COUNT 188 10^3/uL (150-450); RED BLOOD COUNT 4.48 10^6/uL (3.72-5.28); RED CELL DISTRIBUTION WIDTH 14.4 % (11.5-14.0); SEGMENTED NEUTROPHILS % (AUTO) 53.1 % (42-78); TOTAL CELLS COUNTED % (AUTO) 100 %
--- NOTE | 2019-04-19 11:37 | RADIOLOGY REPORT (SQ) ---
EXAM DESCRIPTION: CHEST SINGLE VIEW COMPLETED DATE/TIME: 04/19/2019 11:30 am REASON FOR STUDY: CP COMPARISON: 09/21/2018. EXAM PARAMETERS: NUMBER OF VIEWS: One view. TECHNIQUE: Single frontal radiographic view of the chest acquired. RADIATION DOSE: NA LIMITATIONS: None. FINDINGS: LUNGS AND PLEURA: No opacities, masses or pneumothorax. No pleural effusion. MEDIASTINUM AND HILAR STRUCTURES: No masses. Contour normal. HEART AND VASCULAR STRUCTURES: Heart normal in size. Normal vasculature. BONES: No acute findings. HARDWARE: Defibrillator. OTHER: No other significant finding. IMPRESSION: NO ACUTE RADIOGRAPHIC FINDING IN THE CHEST. TECHNICAL DOCUMENTATION: JOB ID: [id number] [facility]- All Rights Reserved Reading location - IP/workstation name: [email or web address]
[2019-04-19 11:39] LABS: INTERNATIONAL RATION (INR) 1.12; PROTHROMBIN TIME 14.4 SEC (11.4-15.4)
[2019-04-19 11:54] LABS: ALANINE AMINOTRANSFERASE 24 U/L (9-52); ALKALINE PHOSPHATASE 52 U/L (38-126); ANION GAP 6 (5-19); ASPARTATE AMINO TRANSFERASE 22 U/L (14-36); BILIRUBIN,DIRECT 0.2 mg/dL (0.0-0.4); BILIRUBIN,TOTAL 0.4 mg/dL (0.2-1.3); BLOOD UREA NITROGEN 15 mg/dL (7-20); CALCIUM 9.1 mg/dL (8.4-10.2); CARBON DIOXIDE 26 mmol/L (22-30); CHLORIDE 104 mmol/L (98-107); CREATINE KINASE 56 U/L (30-135); GLUCOSE 108 mg/dL (75-110); POTASSIUM 4.7 mmol/L (3.6-5.0); TOTAL PROTEIN 6.8 g/dL (6.3-8.2)
[2019-04-19 12:06] LABS: NT PRO BNP 43 pg/mL (5-900)
[2019-04-19 12:09] LABS: CREATINE KINASE MB 0.82 ng/mL (<4.55); TROPONIN I < 0.012 ng/mL
[2019-04-19] MEDS ORDERED: METOCLOPRAMIDE HCL INJ/PF 10 MG/2 ML SDV IV ONE (12:17)
[2019-04-19] MEDS ORDERED: NITROGLYCERIN 0.4 MG/TAB 25 TAB/BOTTLE SL PRN ×2 (12:31→19:43)
--- NOTE | 2019-04-19 12:37 | RADIOLOGY REPORT (SQ) ---
EXAM DESCRIPTION: CTA CHEST COMPLETED DATE/TIME: 04/19/2019 12:20 pm REASON FOR STUDY: CP COMPARISON: 09/21/2018. TECHNIQUE: CT scan of the chest performed using helical scanning technique with dynamic intravenous contrast injection. Images reviewed with lung, soft tissue and bone windows. Reconstructed coronal and sagittal MPR images reviewed. Additional 3 dimensional post-processing performed to develop Maximal Intensity Projection images (ME P). All images stored on PACS. All CT scanners at this facility use dose modulation, iterative reconstruction, and/or weight based d osing when appropriate to reduce radiation dose to as low as reasonably achievable (ALARA). [facility]: Dose Right [facility]: CareDose [facility]: Dose Right [facility]: Teradose 4D [facility]: BOSS Metrics CONTRAST TYPE AND DOSE: contrast/concentration: Isovue 350.00 mg/ml; Total Contrast Delivered: 70.0 ml; Total Saline Delivered: 80.0 ml Contrast bolus adequate for pulmonary arteries and aorta. RENAL FUNCTION: BUN 15 creatinine 0.75. RADIATION DOSE: CT Rad equipment meets quality standard of care and radiation dose reduction techniq ues were employed. CTDIvol: 13.2 - 22.1 mGy. DLP: 811 mGy-cm. . LIMITATIONS: None. FINDINGS: LUNGS AND PLEURA: No masses, infiltrates, or pneumothorax. No pleural effusions or pleura l calcifications. AORTA AND GREAT VESSELS: No aneurysm. Contrast bolus not optimized for the aorta. HEART: Cardiomegaly, unchanged. No pericardial effusion. No significant coronary artery calcificatio ns. PULMONARY ARTERIES: No emboli visualized in the main pulmonary arteries or the segmental branches. HILAR AND MEDIASTINAL STRUCTURES: No identified masses or abnormal nodes. HARDWARE: Defibrillator. UPPER ABDOMEN: No significant findings. Limited exam. THYROID AND OTHER SOFT TISSUES: No masses. No adenopathy. BONES: No acute or significant finding. 3D MIPS: Confirm above findings. OTHER: No other significant finding. IMPRESSION: 1. NORMAL CTA OF THE CHEST. NO PULMONARY EMBOLI. 2. STABLE CARDIOMEGALY. NO ACUTE FINDINGS. COMMENT: Quality ID # [id number]: Final reports with documentation of one or more dose reduction techniques (e.g., Automated exposure control, adjustment of the mA and/or kV according to patient size, use of iterative reconstruction technique) TECHNICAL DOCUMENTATION: JOB ID: [id number]- All Rights Reserved Reading location - IP/workstation name: [email or web address]
--- NOTE | 2019-04-19 18:38 | PDOC H&P ---
History of Present Illness Admission Date/PCP: 04/19/19 13:09 DOROTHEA RYAN PA-C History of Present Illness: THAO BRODERICK is a 53 year old female with a history of CHF with a pacemaker defibrillator and atrial fibrillation who comes in with a complaint of chest pain. She said it is in the middle of her chest and across the left lower left side of her chest. She said it was initially constant yesterday but is been coming and going since then. She is she was pain-free at the time I talked to her. She has not had any nausea or vomiting. No shortness of breath. No palpitations. Initial troponin was negative. No substantial laboratory abnormalities. She is being admitted for observation. She has a chief radiologic technologist at [place] that the ER provider spoke with and they recommended bringing her in overnight just for observation. Past Medical History Cardiac Medical History: Reports: Atrial Fibrillation, Congestive Heart Failure, Hyperlipidema, Hypertension, Pulmonary Embolism Pulmonary Medical History: Denies: Tuberculosis Endocrine Medical History: Denies: Diabetes Mellitus Type 1, Diabetes Mellitus Type 2 GI Medical History: Reports: Gastroesophageal Reflux Disease Musculoskeltal Medical History: Reports: Arthritis Psychiatric Medical History: Reports: Depression Hematology: Reports: Anemia Past Surgical History Past Surgical History: Reports: Hysterectomy, Internal Defibrillator, Orthopedic Surgery - partial right knee replacement, Pacemaker, Tubal Ligation Denies: Appendectomy, Section, Cholecystectomy, Coronary Artery Bypass Graft, Gastric Bypass Surgery, Herniorrhaphy, Mastectomy, Tonsillectomy Social History Smoking Status: Never Smoker Hx Recreational Drug Use: No Drugs: None Hx Prescription Drug Abuse: No - Advance Directive Resuscitation Status: Do Not Intubate Family History Family History: Reviewed & Not Pertinent, CAD, Hyperlipidemia, Hypertension Parental Family History Reviewed: Yes Children Family History Reviewed: Yes Sibling(s) Family History Reviewed.: Yes Medication/Allergy Home Medications: Amiodarone HCl [Cordarone 200 mg Tablet] 200 mg PO DAILY 04/19/19 Aspirin [Adult Low Dose Aspirin EC] 81 mg PO DAILY 04/19/19 Carvedilol [Coreg 25 mg Tablet] 25 mg PO Q12 04/19/19 Cetirizine HCl [Zyrtec 10 mg Tablet] 10 mg PO DAILY 04/19/19 Colchicine [Colchicine 0.6 mg Tablet] 0.3 mg PO Q12 04/19/19 Cyclobenzaprine HCl [Flexeril 10 mg Tablet] 10 mg PO Q8HP PRN 04/19/19 Furosemide [Lasix 80 mg Tablet] 80 mg PO DAILY 04/19/19 Lisinopril 20 mg PO DAILY 04/19/19 Meclizine HCl [Antivert 25 mg Tablet] 25 mg PO DAILYP PRN 04/19/19 Pantoprazole Sodium [Protonix [address] Tablet] 40 mg PO BID 04/19/19 Spironolactone [Aldactone] 50 mg PO DAILY 04/19/19 Allergies/Adverse Reactions: sacubitril [From Entresto] Allergy (Verified 04/19/19 11:37) Hives valsartan [From Entresto] Allergy (Verified 04/19/19 11:37) Hives acetaminophen [From Percocet] Adverse Reaction (Verified 04/19/19 11:37) Hallucinations oxycodone [From Percocet] Adverse Reaction (Verified 04/19/19 11:37) Hallucinations Review of Systems All systems: reviewed and no additional remarkable complaints except as stated - All systems were reviewed and were negative except as noted above Physical Exam Vital Signs: Temp Pulse Resp BP Pulse Ox 97.2 F 80 18 125/80 100 04/19/19 17:26 04/19/19 17:26 04/19/19 17:26 04/19/19 17:26 04/19/19 17:26 Intake & Output 04/18/19 04/19/19 04/20/19 06:59 06:59 06:59 Weight 106.141 kg General appearance: PRESENT: no acute distress, cooperative, obese Head exam: PRESENT: atraumatic, normocephalic Eye exam: PRESENT: EOMI, PERRLA. ABSENT: conjunctival injection, nystagmus, scleral icterus Ear exam: PRESENT: normal external ear exam Mouth exam: PRESENT: moist, neck supple Throat exam: ABSENT: post pharyngeal erythema Neck exam: PRESENT: full ROM. ABSENT: carotid bruit, JVD, lymphadenopathy, meningismus, tenderness, thyromegaly Respiratory exam: PRESENT: clear to auscultation dl, symmetrical, unlabored. ABSENT: accessory muscle use, chest wall tenderness, crackles, prolonged expiratory phas, rhonchi, tachypnea, wheezes Cardiovascular exam: PRESENT: RRR, +S1, +S2 Pulses: PRESENT: normal carotid pulses Vascular exam: PRESENT: normal capillary refill GI/Abdominal exam: PRESENT: normal bowel sounds, soft. ABSENT: distended, guarding, rebound, tenderness Extremities exam: ABSENT: clubbing, pedal edema Musculoskeletal exam: PRESENT: normal inspection. ABSENT: deformity Neurological exam: PRESENT: alert, awake, oriented to person, oriented to place, oriented to time, oriented to situation, CN II-XII grossly intact. ABSENT: motor sensory deficit Psychiatric exam: PRESENT: appropriate affect, normal mood Skin exam: PRESENT: dry, warm Results Laboratory Results: 04/19/19 11:19 04/19/19 11:19 04/19/19 04/19/19 11:19 11:19 WBC 6.0 RBC 4.48 Hgb 13.1 Hct 38.4 MCV 86 MCH 29.3 MCHC 34.2 RDW 14.4 H Plt Count 188 Seg Neutrophils % 53.1 Lymphocytes % 35.3 Monocytes % 9.5 Eosinophils % 1.7 Basophils % 0.4 Absolute Neutrophils 3.2 Absolute Lymphocytes 2.1 Absolute Monocytes 0.6 Absolute Eosinophils 0.1 Absolute Basophils 0.0 Sodium 136.4 L Potassium 4.7 Chloride 104 Carbon Dioxide 26 Anion Gap 6 BUN 15 Creatinine 0.75 Est GFR ( Amer) > 60 Est GFR (Non-Af Amer) > 60 Glucose 108 Calcium 9.1 Total Bilirubin 0.4 AST 22 ALT 24 Alkaline Phosphatase 52 Total Protein 6.8 Albumin 4.0 04/19/19 04/19/19 11:19 11:19 Creatine Kinase 56 CK-MB (CK-2) 0.82 Troponin I < 0.012 NT-Pro-B Natriuret Pep 43 Impressions: Chest X-Ray 04/19/19 11:03 IMPRESSION: NO ACUTE RADIOGRAPHIC FINDING IN THE CHEST. Chest/Abdomen CTA 04/19/19 11:24 IMPRESSION: 1. NORMAL CTA OF THE CHEST. NO PULMONARY EMBOLI. 2. STABLE CARDIOMEGALY. NO ACUTE FINDINGS. Assessment and Plan - Diagnosis (1) Atypical chest pain Is this a current diagnosis for this admission?: Yes Plan: We will trend her troponins overnight and continue her home medications. We will monitor her and if she rules out we will likely send her home tomorrow because she is got a follow-up next week with her chief radiologic technologist. - Time Time Spent with patient: 35 or more minutes
[2019-04-19] MEDS ORDERED: ONDANSETRON HCL INJ/PF 4 MG/2 ML SDV IV PRN (19:38)
[2019-04-19] MEDS ORDERED: MAG HYDROX/AL HYDROX/SIMETH SUSP 30 ML UDCUP PO PRN (19:38)
[2019-04-19] MEDS ORDERED: TEMAZEPAM 15 MG CAPSULE PO PRN (19:38)
[2019-04-19] MEDS ORDERED: MAGNESIUM HYDROXIDE SUSP 30 ML UDCUP PO PRN (19:38)
[2019-04-19] MEDS ORDERED: MORPHINE SULFATE 10 MG/ML INJ IV PRN (19:43)
[2019-04-19] MEDS ORDERED: HYDRALAZINE HCL INJ/PF 20 MG/1 ML SDV IV PRN (19:43)
[2019-04-19] MEDS ORDERED: CYCLOBENZAPRINE HCL 10 MG TABLET PO PRN (19:47)
[2019-04-19] MEDS ORDERED: MECLIZINE HCL 25 MG TABLET PO PRN (19:47)
--- NOTE | 2019-04-19 20:32 | EKG REPORT ---
SEVERITY:- ABNORMAL ECG - SINUS RHYTHM FIRST DEGREE AV BLOCK LEFT ATRIAL ABNORMALITY LVH WITH SECONDARY REPOLARIZATION ABNORMALITY : Confirmed by: Gerardo Castro 19-Apr-2019 20:31:48
[2019-04-19 20:37] LABS: CREATINE KINASE MB 0.94 ng/mL (<4.55)
[2019-04-19 20:38] LABS: TROPONIN I < 0.012 ng/mL
[2019-04-19 20:42] LABS: FREE T3 3.58 pg/mL (2.77-5.27); FREE T4 (FREE THYROXINE) 0.98 ng/dL (0.78-2.19)
[2019-04-19] MEDS: CARVEDILOL 12.5 MG TABLET PO SCH (21:37)
[2019-04-19] MEDS: FAMOTIDINE INJ/PF 20 MG/2 ML SDV IV SCH (21:38)
[2019-04-19] MEDS: HEPARIN SOD (PORCINE) 5,000 UNIT/ML 1 ML VIAL SUBCUT SCH (21:38)
[2019-04-19] MEDS: COLCHICINE 0.6 MG TABLET PO SCH (21:48)
[2019-04-20 02:47] LABS: CREATINE KINASE MB 0.83 ng/mL (<4.55)
[2019-04-20 02:49] LABS: TROPONIN I < 0.012 ng/mL
[2019-04-20] MEDS: HEPARIN SOD (PORCINE) 5,000 UNIT/ML 1 ML VIAL SUBCUT SCH (05:39)
[2019-04-20 09:21] LABS: CHOLESTEROL 140.16 mg/dL (0-200); CREATINE KINASE 44 U/L (30-135); TRIGLYCERIDES 140 mg/dL (<150)
[2019-04-20 09:22] LABS: ANION GAP 7 (5-19); BLOOD UREA NITROGEN 14 mg/dL (7-20); CALCIUM 9.2 mg/dL (8.4-10.2); CARBON DIOXIDE 28 mmol/L (22-30); CHLORIDE 102 mmol/L (98-107); GLUCOSE 107 mg/dL (75-110); POTASSIUM 4.8 mmol/L (3.6-5.0)
[2019-04-20 09:37] LABS: DIRECT LDL 56 mg/dL (<100)
[2019-04-20 09:41] LABS: TROPONIN I < 0.012 ng/mL
[2019-04-20] MEDS: CARVEDILOL 12.5 MG TABLET PO SCH (09:49)
[2019-04-20] MEDS: COLCHICINE 0.6 MG TABLET PO SCH (09:50)
[2019-04-20] MEDS: FAMOTIDINE INJ/PF 20 MG/2 ML SDV IV SCH (09:57)
[2019-04-20] MEDS ORDERED: FUROSEMIDE 80 MG TABLET PO SCH (10:00)
[2019-04-20] MEDS ORDERED: CETIRIZINE 10 MG TABLET PO SCH (10:00)
[2019-04-20] MEDS ORDERED: PANTOPRAZOLE SODIUM 40 MG TABLET.DR PO SCH (10:00)
[2019-04-20] MEDS ORDERED: ASPIRIN 81 MG TABLET, ENT COATED PO SCH (10:00)
[2019-04-20] MEDS ORDERED: SPIRONOLACTONE 25 MG TABLET PO SCH (10:00)
[2019-04-20] MEDS ORDERED: COLCHICINE 0.6 MG TABLET PO SCH (10:00)
[2019-04-20] MEDS ORDERED: AMIODARONE HCL 200 MG TABLET PO SCH (10:00)
[2019-04-20] MEDS ORDERED: LISINOPRIL 10 MG TABLET PO SCH (10:00)
[2019-04-20] MEDS ORDERED: DOCUSATE SODIUM 100 MG CAPSULE PO SCH (10:00)
[2019-04-20] MEDS ORDERED: (PENDING PHARMACY ID) (Spironolactone [Aldactone] 50 MG) PO SCH (10:00)
[2019-04-20] MEDS ORDERED: (PENDING PHARMACY ID) (Lisinopril [Lisinopril] 20 MG) PO SCH (10:00)
--- NOTE | 2019-04-20 10:08 | EKG REPORT ---
SEVERITY:- ABNORMAL ECG - SINUS RHYTHM FIRST DEGREE AV BLOCK LEFT ATRIAL ABNORMALITY LVH WITH IVCD AND SECONDARY REPOL ABNRM : Confirmed by: Gerardo Castro 20-Apr-2019 10:08:03
--- NOTE | 2019-04-20 10:11 | PDOC DISCHARGE SUMMARY ---
General - Admit/Disc Date/PCP Admission Date/Primary Care Provider: 04/19/19 13:09 DOROTHEA RYAN PA-C Discharge Date: 04/20/19 - Discharge Diagnosis (1) Atypical chest pain Is this a current diagnosis for this admission?: Yes Summary: We will trend her troponins overnight and continue her home medications. We will monitor her and if she rules out we will likely send her home tomorrow because she is got a follow-up next week with her ballistics laboratory gunsmith. [id number]-old female with history of coronary artery disease, questionable congestive heart failure, history of multiple V. tach's admitted with chest pain cardiac enzymes are negative and EKG shows first-degree heart block. Patient is still having the substernal discomfort today. Most likely secondary to gastroparesis reflux disease. pt requesting to go home today and she would like to follow-up with her ballistics laboratory gunsmith at [place] as an outpatient. (2) CHF (congestive heart failure) Is this a current diagnosis for this admission?: No Summary: 04/20/2019-patient given the history of congestive heart failure most likely chronic systolic heart failure. Patient is euvolemic. Patient is on amiodarone at home with furosemide, spironolactone, Coreg, lisinopril and spironolactone. She was advised to continue those medications at home. - Additional Information Resuscitation Status: Do Not Intubate Discharge Diet: Cardiac Discharge Activity: Activity As Tolerated Prescriptions: Mupirocin Calcium [Bactroban 2% Cream 15 gm] 1 applic TP DAILY PRN 7 Days #7 tube PRN Reason: Home Medications: Amiodarone HCl [Cordarone 200 mg Tablet] 200 mg PO DAILY 04/19/19 Aspirin [Adult Low Dose Aspirin EC] 81 mg PO DAILY 04/19/19 Carvedilol [Coreg 25 mg Tablet] 25 mg PO Q12 04/19/19 Cetirizine HCl [Zyrtec 10 mg Tablet] 10 mg PO DAILY 04/19/19 Colchicine [Colchicine 0.6 mg Tablet] 0.3 mg PO Q12 04/19/19 Cyclobenzaprine HCl [Flexeril 10 mg Tablet] 10 mg PO Q8HP PRN 04/19/19 Furosemide [Lasix 80 mg Tablet] 80 mg PO DAILY 04/19/19 Lisinopril 20 mg PO DAILY 04/19/19 Meclizine HCl [Antivert 25 mg Tablet] 25 mg PO DAILYP PRN 04/19/19 Pantoprazole Sodium [Protonix [address] Tablet] 40 mg PO BID 04/19/19 Spironolactone [Aldactone] 50 mg PO DAILY 04/19/19 Mupirocin Calcium [Bactroban 2% Cream 15 gm] 1 applic TP DAILY PRN 7 Days #7 tube 04/20/19 History of Present Illness History of Present Illness: THAO BRODERICK is a 53 year old female 53 year old female with a history of CHF with a pacemaker defibrillator and atrial fibrillation who comes in with a complaint of chest pain. She said it is in the middle of her chest and across the left lower left side of her chest. She said it was initially constant yesterday but is been coming and going since then. She is she was pain-free at the time I talked to her. She has not had any nausea or vomiting. No shortness of breath. No palpitations. Initial troponin was negative. No substantial laboratory abnormalities. She is being admitted for observation. She has a ballistics laboratory gunsmith at [place] that the ER provider spoke with and they recommended bringing her in overnight just for observation. Hospital Course Hospital Course: 53-year-old male admitted with chest pains. Cardiac enzymes are negative EKGs are stable. Patient is going home today. No complications during the hospital stay. Physical Exam Vital Signs: Temp Pulse Resp BP Pulse Ox 97.9 F 71 18 106/70 99 04/20/19 07:18 04/20/19 07:18 04/20/19 07:18 04/20/19 07:18 04/20/19 07:18 Intake & Output 04/19/19 04/20/19 04/21/19 06:59 06:59 06:59 Intake Total 420 Balance 420 Weight 107.3 kg General appearance: PRESENT: no acute distress Head exam: PRESENT: atraumatic Eye exam: PRESENT: PERRLA Mouth exam: PRESENT: moist, tongue midline Neck exam: ABSENT: carotid bruit, JVD, lymphadenopathy, thyromegaly Respiratory exam: PRESENT: decreased breath sounds Cardiovascular exam: PRESENT: RRR. ABSENT: diastolic murmur, rubs, systolic murmur GI/Abdominal exam: PRESENT: normal bowel sounds, soft. ABSENT: distended, guarding, mass, organolmegaly, rebound, tenderness Rectal exam: PRESENT: deferred Extremities exam: PRESENT: full ROM. ABSENT: calf tenderness, clubbing, pedal edema Neurological exam: PRESENT: alert, awake, oriented to person, oriented to place, oriented to time, oriented to situation, CN II-XII grossly intact. ABSENT: motor sensory deficit Psychiatric exam: PRESENT: appropriate affect, normal mood. ABSENT: homicidal ideation, suicidal ideation Results Laboratory Results: 04/19/19 11:19 04/20/19 08:08 04/19/19 04/19/19 04/19/19 11:19 11:19 11:19 WBC 6.0 RBC 4.48 Hgb 13.1 Hct 38.4 MCV 86 MCH 29.3 MCHC 34.2 RDW 14.4 H Plt Count 188 Seg Neutrophils % 53.1 Lymphocytes % 35.3 Monocytes % 9.5 Eosinophils % 1.7 Basophils % 0.4 Absolute Neutrophils 3.2 Absolute Lymphocytes 2.1 Absolute Monocytes 0.6 Absolute Eosinophils 0.1 Absolute Basophils 0.0 Sodium 136.4 L Potassium 4.7 Chloride 104 Carbon Dioxide 26 Anion Gap 6 BUN 15 Creatinine 0.75 Est GFR ( Amer) > 60 Est GFR (Non-Af Amer) > 60 Glucose 108 Calcium 9.1 Magnesium Total Bilirubin 0.4 AST 22 ALT 24 Alkaline Phosphatase 52 Total Protein 6.8 Albumin 4.0 Triglycerides Cholesterol LDL Cholesterol Direct VLDL Cholesterol HDL Cholesterol TSH Free T4 0.98 Free T3 pg/mL 3.58 04/20/19 04/20/19 04/20/19 08:00 08:08 08:08 WBC RBC Hgb Hct MCV MCH MCHC RDW Plt Count Seg Neutrophils % Lymphocytes % Monocytes % Eosinophils % Basophils % Absolute Neutrophils Absolute Lymphocytes Absolute Monocytes Absolute Eosinophils Absolute Basophils Sodium 136.8 L Potassium 4.8 Chloride 102 Carbon Dioxide 28 Anion Gap 7 BUN 14 Creatinine 0.75 Est GFR ( Amer) > 60 Est GFR (Non-Af Amer) > 60 Glucose 107 Calcium 9.2 Magnesium 2.2 Total Bilirubin AST ALT Alkaline Phosphatase Total Protein Albumin Triglycerides 140 Cholesterol 140.16 LDL Cholesterol Direct 56 VLDL Cholesterol 28.0 HDL Cholesterol 54 TSH 3.04 Free T4 Free T3 pg/mL 04/19/19 04/19/19 04/19/19 11:19 11:19 20:00 Creatine Kinase 56 52 CK-MB (CK-2) 0.82 Troponin I < 0.012 NT-Pro-B Natriuret Pep 43 04/19/19 04/20/19 04/20/19 20:00 02:07 02:07 Creatine Kinase 45 CK-MB (CK-2) 0.94 0.83 Troponin I < 0.012 < 0.012 NT-Pro-B Natriuret Pep 04/20/19 04/20/19 08:08 08:08 Creatine Kinase 44 CK-MB (CK-2) 0.90 Troponin I < 0.012 NT-Pro-B Natriuret Pep Impressions: Chest X-Ray 04/19/19 11:03 IMPRESSION: NO ACUTE RADIOGRAPHIC FINDING IN THE CHEST. Chest/Abdomen CTA 04/19/19 11:24 IMPRESSION: 1. NORMAL CTA OF THE CHEST. NO PULMONARY EMBOLI. 2. STABLE CARDIOMEGALY. NO ACUTE FINDINGS. Qualifiers - * PATIENT BEING DISCHARGED WITH ANY OF THE FOLLOWING DIAGNOSIS: No VTE patient discharged on overlapping Therapy?: No Acute Heart Failure - Is this a Heart Failure Patient?: No
[2019-04-20 10:20] VITALS: BP 125/80
== END 2019-04-20 11:45 | disposition home or self-care (01) ==
LOC: ER 10:31 → EH 13:09 → 4N 16:46
PROVIDERS: ADMIT Family Medicine; ATTEND Family Medicine
DX: R07.89 Other chest pain (principal); I25.10 Atherosclerotic heart disease of native coronary artery without angina pectoris; I48.91 Unspecified atrial fibrillation; E66.9 Obesity, unspecified; I10 Essential (primary) hypertension; Z86.79 Personal history of other diseases of the circulatory system; Z79.899 Other long term (current) drug therapy; Z95.810 Presence of automatic (implantable) cardiac defibrillator; Z86.711 Personal history of pulmonary embolism; Z82.49 Family history of ischemic heart disease and other diseases of the circulatory system; Z79.82 Long term (current) use of aspirin
CPT/HCPCS: 93005 ×2; 99285; 96374; 36415 ×2; 84439; 82553 ×2; 82550 ×2; 83735; 84443; 85025; 85610; 80048; 80053; 84484 ×2; 84481; 80061; 83880; 71045; 71275; 93010; A9270 ×8; J2765; J3490 ×2; S0028; G0378

== ENCOUNTER 2019-12-01 17:43 | Emergency (ER) | payer MEDICARE ==
[2019-12-01 18:48] LABS: ABSOLUTE EOSINOPHILS # (AUTO) 0.1 10^3/uL (0.0-0.6); ABSOLUTE LYMPHOCYTES (AUTO) 1.9 10^3/uL (0.5-4.7); ABSOLUTE MONOCYTES (AUTO) 0.5 10^3/uL (0.1-1.4); ABSOLUTE NEUT (AUTO) 3.4 10^3/uL (1.7-8.2); BASOPHILS % (AUTO) 0.6 % (0-2); EOSINOPHILS % (AUTO) 1.7 % (0-6); HEMATOCRIT 38.6 % (36.0-47.0); HEMOGLOBIN 13.3 g/dL (12.0-15.5); LYMPHOCYTES % (AUTO) 32.7 % (13-45); MEAN CORPUSCULAR HEMOGLOBIN 29.3 pg (27.0-33.4); MEAN CORPUSCULAR HGB CONC 34.5 g/dL (32.0-36.0); MEAN CORPUSCULAR VOLUME 85 fl (80-97); MONOCYTES % (AUTO) 7.6 % (3-13); PLATELET COUNT 215 10^3/uL (150-450); RED BLOOD COUNT 4.53 10^6/uL (3.72-5.28); RED CELL DISTRIBUTION WIDTH 14.9 % (11.5-14.0); SEGMENTED NEUTROPHILS % (AUTO) 57.4 % (42-78); TOTAL CELLS COUNTED % (AUTO) 100 %; WHITE BLOOD COUNT 5.9 10^3/uL (4.0-10.5)
[2019-12-01 19:04] LABS: ALBUMIN 4.2 g/dL (3.5-5.0); ALKALINE PHOSPHATASE 66 U/L (38-126); ANION GAP 9 (5-19); ASPARTATE AMINO TRANSFERASE 24 U/L (14-36); BILIRUBIN,TOTAL 0.3 mg/dL (0.2-1.3); BLOOD UREA NITROGEN 16 mg/dL (7-20); CALCIUM 9.6 mg/dL (8.4-10.2); CARBON DIOXIDE 26 mmol/L (22-30); CHLORIDE 105 mmol/L (98-107); CREATINE KINASE 105 U/L (30-135); GLUCOSE 101 mg/dL (75-110); POTASSIUM 3.9 mmol/L (3.6-5.0)
--- NOTE | 2019-12-01 19:07 | RADIOLOGY REPORT (SQ) ---
EXAM DESCRIPTION: CHEST SINGLE VIEW COMPLETED DATE/TIME: 12/01/2019 6:57 pm REASON FOR STUDY: chest pain COMPARISON: 04/19/2019 TECHNIQUE: Single frontal radiographic view of the chest acquired. NUMBER OF VIEWS: One view. LIMITATIONS: None. FINDINGS: LUNGS AND PLEURA: No pneumothorax. No consolidation or pleural effusion. MEDIASTINUM AND HILAR STRUCTURES: Stable. HEART AND VASCULAR STRUCTURES: Stable. BONES: No acute findings. HARDWARE: Cardiac defibrillator. OTHER: No other significant finding. IMPRESSION: NO ACUTE FINDINGS. TECHNICAL DOCUMENTATION: JOB ID: [id number] [id number] 2010 [employer]- All Rights Reserved Reading location - IP/workstation name: [email or web address]
[2019-12-01 19:13] LABS: CREATINE KINASE MB 1.07 ng/mL (<4.55); TROPONIN I 0.013 ng/mL
--- NOTE | 2019-12-01 19:53 | EKG REPORT ---
SEVERITY:- ABNORMAL ECG - SINUS RHYTHM MULTIPLE VENTRICULAR PREMATURE COMPLEXES FIRST DEGREE AV BLOCK MAXIMUS, CONSIDER BIATRIAL ABNORMALITIES LVH WITH IVCD, LAD AND SECONDARY REPOL ABNRM LAFB : Confirmed by: Maynor Villareal MD 01-Dec-2019 19:52:24
--- NOTE | 2019-12-01 21:03 | ER Document Report ---
ED General - General Chief Complaint: Vision Problem Stated Complaint: VISION PROBLEMS/DIZZYNESS/CHEST DISCOMFORT Time Seen by Provider: 12/01/19 20:00 Primary Care Provider: DOROTHEA RYAN PA-C [Primary Care Provider] - Follow up as needed TRAVEL OUTSIDE OF THE [place] IN LAST 30 DAYS: No - HPI Notes: 54-year-old female presents for evaluation of transient bilateral scintillating scotomas. Patient denies any history of stroke or TIAs. She has a remote history of migraine. She did not experience any headache nausea or vomiting today. She says she was at home and her symptoms lasted for about 15 minutes and resolve spontaneously. She is asymptomatic at this time. Denies any sensory changes, motor changes difficulty swallowing or difficulty speaking Patient has an extensive cardiovascular history. She has CAD and has history also of CHF with AICD in situ. She has a past history of PE and is supposed to be on Xarelto but says she can no longer afford the medication so she stopped taking this on her own about a year ago. She does not currently take aspirin. - Related Data Allergies/Adverse Reactions: sacubitril [From Entresto] Allergy (Verified 12/01/19 18:42) Hives valsartan [From Entresto] Allergy (Verified 12/01/19 18:42) Hives acetaminophen [From Percocet] Adverse Reaction (Verified 12/01/19 18:42) Hallucinations oxycodone [From Percocet] Adverse Reaction (Verified 12/01/19 18:42) Hallucinations Past Medical History - General Information source: Patient - Social History Smoking Status: Never Smoker Chew tobacco use (# tins/day): No Frequency of alcohol use: Social Drug Abuse: None Family History: Reviewed & Not Pertinent, CAD, Hyperlipidemia, Hypertension Patient has suicidal ideation: No Patient has homicidal ideation: No - Past Medical History Cardiac Medical History: Reports: Hx Atrial Fibrillation, Hx Congestive Heart Failure, Hx Hypercholesterolemia, Hx Hypertension, Hx Pulmonary Embolism Pulmonary Medical History: Denies: Hx Tuberculosis Neurological Medical History: Reports: Hx Migraine Endocrine Medical History: Denies: Hx Diabetes Mellitus Type 1, Hx Diabetes Mellitus Type 2 Renal/ Medical History: Denies: Hx Peritoneal Dialysis GI Medical History: Reports: Hx Gastroesophageal Reflux Disease Musculoskeletal Medical History: Reports Hx Arthritis Psychiatric Medical History: Reports: Hx Depression Past Surgical History: Reports: Hx Cardiac Surgery - pacer/defib placement, abla joanne, Hx Hysterectomy, Hx Internal Defibrillator, Hx Orthopedic Surgery - partial right knee replacement, Hx Pacemaker, Hx Tubal Ligation. Denies: Hx Appendectomy, Hx Bowel Surgery, Hx Section, Hx Cholecystectomy, Hx Coronary Artery Bypass Graft, Hx Gastric Bypass Surgery, Hx Herniorrhaphy, Hx Mastectomy, Hx Tonsillectomy - Immunizations Hx Diphtheria, Pertussis, Tetanus Vaccination: Yes Hx Pneumococcal Vaccination: 09/26/10 Review of Systems - Review of Systems Notes: Constitutional: Negative for fever. HENT: Negative for sore throat. Eyes: As per HPI. Cardiovascular: Intermittent sharp pain in her chest area when she turns to either side. Respiratory: Negative for shortness of breath. Gastrointestinal: Negative for abdominal pain, vomiting or diarrhea. Genitourinary: Negative for dysuria. Musculoskeletal: Negative for back pain. Skin: Negative for rash. Neurological: As per HPI. 10 point ROS negative except as marked above and in HPI. Physical Exam - Vital signs Vitals: Temp Pulse Resp BP Pulse Ox 97.8 F 88 16 158/80 H 97 12/01/19 17:56 12/01/19 17:56 12/01/19 17:56 12/01/19 17:56 12/01/19 17:56 - Notes Notes: GENERAL: Moderately obese middle-age female appearing in no acute distress. SKIN: Good turgor no rashes. HEAD: Normocephalic atraumatic. EYES: PERRLA. EOMI. Conjunctivae and sclerae clear. EARS: CANALS AND TMS CLEAR. NOSE: CLEAR. MOUTH: Moist mucosa. Good dentition. No stridor or edema. No drooling. NECK: Supple. No masses or thyromegaly. No adenopathy. Carotids 2+ without bruits. No JVD. BACK: Symmetrical without tenderness. CHEST: AICD present left anterior chest wall. Mild bilateral anterior chest wall tenderness. Respirations unlabored. Breath sounds clear and symmetrical. HEART: Regular rhythm. No murmur gallop or rub. ABDOMEN: Soft nontender without masses, organomegaly or rebound. Bowel sounds normally active. No bruits. GENITALIA: Deferred. EXTREMITIES: No edema. No calf tenderness. Cap refill less than 1.5 seconds. Dorsalis pedis and posterior tibial pulses 3+ and symmetrical. NEUROLOGICAL: GCS 15. Alert and oriented x3. Normal gait. Fluent speech. Cranial nerves II through XII intact. Sensorimotor and cerebellar normal. Normal tone. PSYCHIATRIC: Appropriate affect. Course - Re-evaluation Re-evalutation: 12/01/19 21:03 I looked back at past records note this lady had a CTA of head and neck in 2011 which were both essentially normal. Principal differential diagnosis at this time would be TIA versus migraine variant. I will get a noncontrast CT of the head. If this is negative I think it is probably reasonable to try to get this lady back on Eliquis or Xarelto which she supposed to be taking anyway and we can try to get an outpatient carotid Doppler for her. 12/01/19 23:36 Second troponin is normal. Head CT normal. Neurologic exam remains normal. I have given the patient a coupon for Xarelto going to restart her on this and have her follow-up with her primary care provider within the next 48 hours to get a carotid duplex scan as an outpatient. She understands to return here immediately for any new or worsening symptoms. - Vital Signs Vital signs: Temp Pulse Resp BP Pulse Ox 97.8 F 88 13 153/91 H 99 12/01/19 17:56 12/01/19 17:56 12/01/19 20:01 12/01/19 20:01 12/01/19 20:01 - Laboratory Result Diagrams: 12/01/19 18:09 12/01/19 18:09 Laboratory results interpreted by me: 12/01/19 18:09 RDW 14.9 H - EKG Interpretation by Me Additional EKG results interpreted by me: 12/01/19 21:05 Twelve-lead EKG from 174 is reviewed contemporaneously by me demonstrating normal sinus rhythm with multiple PVCs first-degree AV block and LVH. Overall appearance of the tracing is unchanged compared to a prior study from 04/19/2019. Discharge - Discharge Clinical Impression: TIA (transient ischemic attack) Condition: Stable Disposition: HOME, SELF-CARE Additional Instructions: Transient Ischemic Attack You have been diagnosed as having a transient ischemic attack (TIA). This is caused when an artery to the brain has been temporarily blocked. It can result in visual changes, difficulty with speech, and weakness or numbness -- usually limited to one side of the body. TIA symptoms usually resolve within an hour, but a TIA is serious, as it may be a warning sign of an impending stroke. To prevent further episodes, you may be placed on medication to reduce the possibility that your platelets will aggregate and form blood clots in the arteries that supply the brain. Usually, this includes aspirin and sometimes other platelet inhibitors. Further evaluation is often necessary to make an exact diagnosis as to where these blood clots are originating, and if anything else needs to be done to correct the problem. Call the physician or go to the emergency room if episodes occur with increasing frequency. If symptoms occur that don't go away within a few minutes, call 911. Restart Xarelto as directed. See your doctor soon as possible to obtain additional outpatient testing (carotid duplex scan). Return here as needed for new or worsening symptoms: New neurological symptoms Pain that is worsening or unimproved Uncontrolled vomiting High fever or shaking chills Overall worsening Prescriptions: Rivaroxaban [Xarelto 15 mg Tablet] 15 mg PO BID 21 Days #42 tablet Referrals: DOROTHEA RYAN PA-C [Primary Care Provider] - Follow up as needed
--- NOTE | 2019-12-01 21:25 | RADIOLOGY REPORT (SQ) ---
EXAM DESCRIPTION: CT HEAD WITHOUT IV CONTRAST COMPLETED DATE/TME: 12/01/2019 20:54 CLINICAL HISTORY: 54 years, Female, tia COMPARISON: None Available. Technique: Contiguous axial images of the brain were obtained without the administration of intravenous contrast. Coronal and sagittal reformats obtained and reviewed. This exam was performed according to our departmental dose-optimization program which includes use of Automated Exposure Control, adjustment of the mA and/or kV according to patient size and/or use of iterative reconstruction technique. Findings: Brain: No hemorrhage. No territorial infarct. No mass effect. No herniation. Ventricles: Within normal limits for patient's age. Bones: No acute osseous abnormality. Paranasal sinuses: Air-fluid level in the right maxillary sinus and minimal mucosal thickening in some of the ethmoid air cells.. Mastoid air cells: Unremarkable. Soft tissues: No acute abnormality. IMPRESSION: No acute intracranial abnormalities. Mild inflammatory changes in the right maxillary sinus.
[2019-12-01] MEDS ORDERED: RIVAROXABAN 15 MG TABLET PO ONE (23:35)
[2019-12-02] MEDS ORDERED: RIVAROXABAN 15 MG TABLET ONE (00:35)
[2019-12-02 01:11] VITALS: BP 141/81
== END 2019-12-02 01:11 | disposition home or self-care (01) ==
LOC: ER 17:43
DX: G45.9 Transient cerebral ischemic attack, unspecified (principal); R42 Dizziness and giddiness; I48.91 Unspecified atrial fibrillation; I50.9 Heart failure, unspecified; E78.00 Pure hypercholesterolemia, unspecified; I11.0 Hypertensive heart disease with heart failure; Z95.810 Presence of automatic (implantable) cardiac defibrillator; Z86.711 Personal history of pulmonary embolism; Z90.710 Acquired absence of both cervix and uterus; Z96.651 Presence of right artificial knee joint
CPT/HCPCS: 93005; 99284; 36415; 82553; 82550; 85025; 80053; 84484; 71045; 70450; 93010; A9270